=== PATIENT | male | born 1945 | race Caucasian/White ===

== ENCOUNTER → 2016-05-31 | Outpatient (CLI) | payer BC ==
[~2016-05-31] MED LIST: AMLO-114 PO; ASCO1CAP3 PO; ASPCH81X PO; EZET10TA47 PO; OMEG12006 PO; REDCAP2 PO; TADA20TA PO
[2016-05-31 11:27] LABS: ALT/SGPT 29 U/L (12-78); BLOOD UREA NITROGEN 21 mg/dl (7-18); BUN/CREATININE RATIO 15.9 (10-20); CALCIUM 9.5 mg/dl (8.5-10.1); CARBON DIOXIDE 30 mmol/L (21-32); CHLORIDE 106 mmol/L (98-107); GLUCOSE 94 mg/dl (70-99); POTASSIUM 4.4 mmol/L (3.5-5.1); SODIUM 141 mmol/L (136-145)
[2016-05-31 11:30] LABS: ALKALINE PHOSPHATASE 92 U/L (45-117); AST/SGOT 18 U/L (15-37)
== END | disposition home or self-care (01) ==
LOC: C.LABBC 08:02
PROVIDERS: ATTEND Family Medicine
DX: G50.0 Trigeminal neuralgia (principal); N18.3 Chronic kidney disease, stage 3 (moderate)

== ENCOUNTER → 2016-09-02 | Outpatient (CLI) | payer BC ==
[~2016-09-02] MED LIST changes: +LSN20 PO
[2016-09-02 12:39] LABS: URINE APPEARANCE CLEAR (CLEAR); URINE BILIRUBIN NEG (NEG); URINE COLOR YELLOW; URINE NITRITE NEG (NEG); URINE PH 5.5 (4.5-7.5); UROBILINOGEN NEG (NEG)
[2016-09-02 12:40] LABS: MANUAL MICROSCOPIC REQUIRED? NO; REVIEW REQ? NO
[2016-09-02 13:20] LABS: BLOOD UREA NITROGEN 21 mg/dl (7-18); BUN/CREATININE RATIO 17.4 (10-20); CARBON DIOXIDE 30 mmol/L (21-32); CHLORIDE 107 mmol/L (98-107); GLUCOSE 92 mg/dl (70-99); PHOSPHORUS 2.5 mg/dl (2.5-4.9); POTASSIUM 4.2 mmol/L (3.5-5.1); SODIUM 141 mmol/L (136-145)
[2016-09-02 13:26] LABS: CALCIUM 9.2 mg/dl (8.5-10.1)
== END | disposition home or self-care (01) ==
LOC: C.LABPBG 08:55
PROVIDERS: ATTEND Internal Medicine Nephrology
DX: N18.3 Chronic kidney disease, stage 3 (moderate) (principal)

== ENCOUNTER 2016-12-17 10:08 | Inpatient (IN) | payer BC, OTHER ==
[~2016-12-17] VITALS: Ht 175.3 cm; Wt 74.2 kg
[~2016-12-17 10:08] MED LIST changes: -LSN20 PO
[2016-12-17] MEDS ORDERED: LSN20 PO (10:27)
--- NOTE | 2016-12-17 11:10 | DIAGNOSTIC IMAGING REPORT ---
CT SCAN OF THE BRAIN WITHOUT IV CONTRAST CLINICAL HISTORY: Right upper extremity weakness/numbness. COMPARISON STUDY: No priors. TECHNIQUE: Unenhanced axial CT scan of the brain is performed from the vertex to the skull base. CT DOSE: 537.48 mGy.cm FINDINGS: Brain parenchyma: There are age-related involutional changes noting mild subcortical and periventricular microangiopathic change. There is no hemorrhage, mass effect, or evidence of acute territorial ischemia by CT criteria. Paez-white matter is preserved. No extra-axial fluid collection is seen. Ventricles, sulci, cisterns: Prominent secondary to involutional change. Intracranial vasculature: There is atherosclerotic calcification of the cavernous carotid arteries. Calvarium: Unremarkable. Sinuses and mastoids: The visualized paranasal sinuses are clear. Findings suggest previous left mastoid surgery. There is a small left mastoid effusion. The right mastoid air cells are well pneumatized. Orbits: The bony orbits are grossly intact. There are bilateral ocular lens implants. IMPRESSION: There is no hemorrhage, mass effect, or evidence of acute territorial ischemia by CT criteria. Electronically signed by: Billy Mckeon M.D. 12/17/2016 11:08 AM Dictated Date/Time: 12/17/2016 11:05 AM
[2016-12-17 11:20] LABS: BASO % 0.3 %; BASO ABS # 0.01 K/uL (0-0.2); COMPLETE YES; HEMATOCRIT 42.6 % (42-52); IG% 0.3 %; LYMPH % 41.1 %; LYMPH ABS # 1.25 K/uL (1.2-3.4); MEAN CORPUSCULAR HEMOGLOBIN 31.2 pg (25-34); MEAN CORPUSCULAR HGB CONC 34.3 g/dl (32-36); MEAN PLATELET VOLUME 10.3 fL (7.4-10.4); MONO % 10.5 %; NEUT % 45.8 %; PLATELET COUNT 130 K/uL (130-400); RED BLOOD COUNT 4.68 M/uL (4.7-6.1); WHITE BLOOD COUNT 3.04 K/uL (4.8-10.8)
[2016-12-17 11:29] LABS: BUN/CREATININE RATIO 18.9 (10-20); CALCIUM 9.2 mg/dl (8.5-10.1); CREATININE 1.5 mg/dl (0.60-1.40); MAGNESIUM 2.1 mg/dl (1.8-2.4); POTASSIUM 4.2 mmol/L (3.5-5.1); PROTHROMBIN TIME (PATIENT) 10.7 SECONDS (9.0-12.0)
[2016-12-17 11:45] LABS: THYROID STIMULATING HORMONE 1.13 uIu/ml (0.300-4.500)
[2016-12-17] MEDS ORDERED: ASPIRIN 324 MG CHEW PO STA (11:47)
--- NOTE | 2016-12-17 11:52 | DIAGNOSTIC IMAGING REPORT ---
SINGLE VIEW CHEST CLINICAL HISTORY: Tingling and numbness. Strokelike symptoms. FINDINGS: 2 AP, portable, upright chest radiographs are obtained. No prior studies are available for comparison at the time of dictation. The examination is degraded by portable technique and patient rotation. The cardiomediastinal silhouette is unremarkable. There is atherosclerotic calcification of the thoracic aorta. The lungs and pleural spaces are clear. No pneumothorax is seen. The skeletal structures are osteopenic. Arthritic change is seen in the shoulders and thoracic spine. IMPRESSION: No acute cardiopulmonary abnormality. Electronically signed by: Billy Mckeon M.D. 12/17/2016 11:51 AM Dictated Date/Time: 12/17/2016 11:50 AM
[2016-12-17 12:21] LABS: LYME DISEASE AB IGG NEG (NEG); LYME DISEASE AB IGM NEG (NEG)
[2016-12-17 12:30] VITALS: O2SAT 96; Ht 175.3 cm; Wt 74.2 kg
--- NOTE | 2016-12-17 12:46 | EMERGENCY ROOM VISIT NOTE ---
History Report prepared by Ngoc: Edith Vega Under the Supervision of: Dr. Boni Brewer M.D. First contact with patient: 10:24 Chief Complaint: NEURO SYMPTOMS Stated Complaint: FRIDAY PM, NUMBNESS IN HAND/ARM, WEAK, FELL History of Present Illness The patient is a 71 year old white male with a past medical history of hypertension, hyperlipidemia, and stage 3 kidney disease who presents to the ED with a cc of neurological symptoms beginning 2 days ago. The patient has had intermittent burning pain in his right arm for the past 3-4 months. He states that it waxes and wanes and feels numb and tingly like he "laid on it and it fell asleep." He states that he just wakes up with this burning pain. He has seen his PCP for this in the past and was told that he might have pinched something in his neck. Two days ago the patient felt weak and short of breath. He walked to the bathroom and states that he "just ran out of gas." He fell down on his buttocks because he was feeling so weak. The patient denies LOC and states that he just felt weak. His called his PCP today with his symptoms and was advised to bring the patient to the ED for further evaluation. The patient denies any current numbness, tingling or weakness. He takes aspirin and denies any other blood thinners. He has had multiple ticks in the past with bullseye rashes and states that he has only taken doxycycline for a couple of days at a time. Source of History: patient Onset: 2 days ago Position: other (global) Quality: burning Timing: intermittent Associated Symptoms: + weakness, + numbness (right arm), No LOC Note: Pt has right arm pain and tingling. Review of Systems See HPI for pertinent positives and negatives. A total of ten systems were reviewed and were otherwise negative. Past Medical & Surgical Medical Problems: (1) Hyperlipidemia (2) Hypertension (3) Stage 3 chronic kidney disease Family History Cancer Social History Smoking Status: Never Smoker Smokeless Tobacco Use: No Alcohol Use: occasionally Marital Status: Housing Status: lives with significant other Occupation Status: retired Current/Historical Medications Scheduled Ascorbic Acid (Vitamin C), 1 CAP PO QAM Aspirin (Aspirin Chewable), 81 MG PO QAM Ezetimibe (Zetia), 10 MG PO QAM Lisinopril (Lisinopril), 20 MG PO DAILY [place]-3 Fatty Acids ([place] 3), 1 CAP PO QAM Scheduled PRN Tadalafil (Cialis), 20 MG PO DAILY PRN for PRN Allergies Coded Allergies: Statins (Unverified Allergy, Intermediate, MUSCLE SPASMS, 12/17/16) Physical Exam Vital Signs Date Time Temp Pulse Resp B/P (MAP) Pulse Ox O2 Delivery O2 Flow Rate FiO2 12/17/16 14:19 69 16 152/98 97 Room Air 12/17/16 13:43 66 15 96 12/17/16 13:30 154/82 12/17/16 13:13 63 17 97 12/17/16 13:00 140/82 12/17/16 12:43 69 16 97 12/17/16 12:38 67 17 96 12/17/16 12:30 96 Room Air 12/17/16 12:30 144/69 12/17/16 12:20 135/79 12/17/16 12:08 68 15 97 12/17/16 12:01 135/79 12/17/16 11:38 66 20 96 12/17/16 11:31 129/82 12/17/16 11:11 72 20 141/79 97 Room Air 12/17/16 11:10 98 Room Air 12/17/16 11:10 141/79 12/17/16 11:09 87/77 12/17/16 10:57 140/90 12/17/16 10:43 81 12/17/16 10:13 36.7 82 16 164/55 98 Room Air Physical Exam GENERAL: Awake, alert, well-appearing, NAD HENT: Normocephalic, atraumatic. EYES: Normal conjunctiva. Sclera non-icteric. NECK: Supple. No nuchal rigidity. FROM. RESPIRATORY: CTAB, no rhonchi, wheezing, crackles CARDIAC: RRR, systolic ejection murmur. ABDOMEN: Soft, NTND, BS+ MSK: No chest wall TTP, no LE edema NEURO: GCS 15, CN 2-12 intact, moves all 4s on command. No drift, no dysmetria, good finger to nose. 5/5 upper and lower extremity strength. No sensory deficits. SKIN: No rash or jaundice noted. Medical Decision & Procedures ER Provider Diagnostic Interpretation: Radiology results as stated below per my review and radiologist interpretation: CT SCAN OF THE BRAIN WITHOUT IV CONTRAST CLINICAL HISTORY: Right upper extremity weakness/numbness. COMPARISON STUDY: No priors. TECHNIQUE: Unenhanced axial CT scan of the brain is performed from the vertex to the skull base. CT DOSE: 537.48 mGy.cm FINDINGS: Brain parenchyma: There are age-related involutional changes noting mild subcortical and periventricular microangiopathic change. There is no hemorrhage, mass effect, or evidence of acute territorial ischemia by CT criteria. Paez-white matter is preserved. No extra-axial fluid collection is seen. Ventricles, sulci, cisterns: Prominent secondary to involutional change. Intracranial vasculature: There is atherosclerotic calcification of the cavernous carotid arteries. Calvarium: Unremarkable. Sinuses and mastoids: The visualized paranasal sinuses are clear. Findings suggest previous left mastoid surgery. There is a small left mastoid effusion. The right mastoid air cells are well pneumatized. Orbits: The bony orbits are grossly intact. There are bilateral ocular lens implants. IMPRESSION: There is no hemorrhage, mass effect, or evidence of acute territorial ischemia by CT criteria. Electronically signed by: Billy Mckeon M.D. 12/17/2016 11:08 AM Dictated Date/Time: 12/17/2016 11:05 AM SINGLE VIEW CHEST CLINICAL HISTORY: Tingling and numbness. Strokelike symptoms. FINDINGS: 2 AP, portable, upright chest radiographs are obtained. No prior studies are available for comparison at the time of dictation. The examination is degraded by portable technique and patient rotation. The cardiomediastinal silhouette is unremarkable. There is atherosclerotic calcification of the thoracic aorta. The lungs and pleural spaces are clear. No pneumothorax is seen. The skeletal structures are osteopenic. Arthritic change is seen in the shoulders and thoracic spine. IMPRESSION: No acute cardiopulmonary abnormality. Electronically signed by: Billy Mckeon M.D. 12/17/2016 11:51 AM Dictated Date/Time: 12/17/2016 11:50 AM Laboratory Results 12/17/16 10:50 Red Blood Count 4.68, Mean Corpuscular Volume 91.0, Mean Corpuscular Hemoglobin 31.2, Mean Corpuscular Hemoglobin Concent 34.3, Mean Platelet Volume 10.3, Neutrophils (%) (Auto) 45.8, Lymphocytes (%) (Auto) 41.1, Monocytes (%) (Auto) 10.5, Eosinophils (%) (Auto) 2.0, Basophils (%) (Auto) 0.3, Neutrophils # (Auto ) 1.39, Lymphocytes # (Auto) 1.25, Monocytes # (Auto) 0.32, Eosinophils # (Auto ) 0.06, Basophils # (Auto) 0.01 12/17/16 10:50 Test 12/17/16 10:50 12/17/16 13:55 White Blood Count 3.04 K/uL (4.8-10.8) Red Blood Count 4.68 M/uL (4.7-6.1) Hemoglobin 14.6 g/dL (14.0-18.0) Hematocrit 42.6 % (42-52) Mean Corpuscular Volume 91.0 fL (80-100) Mean Corpuscular Hemoglobin 31.2 pg (25-34) Mean Corpuscular Hemoglobin Concent 34.3 g/dl (32-36) Platelet Count 130 K/uL (130-400) Mean Platelet Volume 10.3 fL (7.4-10.4) Neutrophils (%) (Auto) 45.8 % Lymphocytes (%) (Auto) 41.1 % Monocytes (%) (Auto) 10.5 % Eosinophils (%) (Auto) 2.0 % Basophils (%) (Auto) 0.3 % Neutrophils # (Auto) 1.39 K/uL (1.4-6.5) Lymphocytes # (Auto) 1.25 K/uL (1.2-3.4) Monocytes # (Auto) 0.32 K/uL (0.11-0.59) Eosinophils # (Auto) 0.06 K/uL (0-0.5) Basophils # (Auto) 0.01 K/uL (0-0.2) RDW Standard Deviation 43.0 fL (36.4-46.3) RDW Coefficient of Variation 13.0 % (11.5-14.5) Immature Granulocyte % (Auto) 0.3 % Immature Granulocyte # (Auto) 0.01 K/uL (0.00-0.02) Prothrombin Time 10.7 SECONDS (9.0-12.0) Prothromb Time International Ratio 1.0 (0.9-1.1) Activated Partial Thromboplast Time 26.3 SECONDS (21.0-31.0) Partial Thromboplastin Ratio 1.0 Anion Gap 6.0 mmol/L (3-11) Est Creatinine Clear Calc Drug Dose 45.2 ml/min Estimated GFR () 53.5 Estimated GFR (Non- 46.2 BUN/Creatinine Ratio 18.9 (10-20) Calcium Level 9.2 mg/dl (8.5-10.1) Magnesium Level 2.1 mg/dl (1.8-2.4) Total Bilirubin 0.4 mg/dl (0.2-1) Direct Bilirubin 0.1 mg/dl (0-0.2) Aspartate Amino Transf (AST/SGOT) 35 U/L (15-37) Alanine Aminotransferase (ALT/SGPT) 28 U/L (12-78) Alkaline Phosphatase 84 U/L (45-117) Troponin I 2.110 ng/ml (0-0.045) Total Protein 6.7 gm/dl (6.4-8.2) Albumin 3.5 gm/dl (3.4-5.0) Lipase 326 U/L (73-393) Thyroid Stimulating Hormone (TSH) 1.130 uIu/ml (0.300-4.500) Lyme Disease IgG Antibody NEG (NEG) Lyme Disease IgM Antibody NEG (NEG) Laboratory results reviewed by me Medications Administered Medications (Trade) Dose Ordered Sig/Reny Route Start Time Stop Time Status Last Admin Dose Admin Aspirin (Aspirin Chew) 324 mg NOW STAT PO 12/17/16 11:47 12/17/16 11:48 DC 12/17/16 12:34 324 MG ECG Indication: weakness Rate (beats per minute): 76 Rhythm: normal sinus Findings: no ectopy, other (normal intervals, no ST changes) ED Course 1024: The patient was evaluated in room C6. A complete history and physical exam was performed. 1147: Aspirin 324 mg PO 1204: I spoke with Dr. Ureña. We discussed the patients case. The patient will be evaluated by the [facility] for further management. 1208: I reassessed the patient. He is feeling better and resting comfortably. I discussed the results and treatment plan with the patient. I answered all pertaining questions that he had. He expressed understanding and verbalized agreement. 1345: Influenza Virus Vaccine 0.5 ml IM Medical Decision The patient is a 71 year old white male with a past medical history of hypertension, hyperlipidemia, and stage 3 kidney disease who presents to the ED with a cc of neurological symptoms beginning 2 days ago. Differential diagnosis: Etiologies such as metabolic, infection, hypo/hyperglycemia, electrolyte abnormalities, cardiac sources, intracerebral event, toxicologic, neurologic, as well as others were entertained. Patient was seen and evaluated the bedside. Patient has had some somewhat chronic symptoms seem every 3-4 months he does develop burning numbness and tingling in his hand. He states this was recently put on Friday and did have acute episode of lower extremity weakness with a subsequent fall. Patient denies any LOC and did not strike his head. Patient does not take any blood thinning medications. Patient's neurologic exam is fairly unremarkable. Patient's EKG normal sinus with no acute ischemic changes. Patient did have a positive troponin. Upon further history patient did state that he had had a target lesion and had only taken a short course of antibiotics. A Lyme's test was also pending at this time. I spoke with the hospitalist who agreed that the patient would benefit from further treatment evaluation including an echocardiogram. Patient currently denies any chest pain or shortness of breath. Patient was given a full dose aspirin. Medication Reconcilliation Current Medication List: was personally reviewed by me Blood Pressure Screening Patient's blood pressure: Normal blood pressure Consults Time Called: 1201 Consulting Physician: Dr. Ureña Returned Call: [address] Ureña. We discussed the patients case. The patient will be evaluated by the [facility] for further management. Impression Primary Impression: Elevated troponin Additional Impression: RUE numbness Scribe Attestation The scribe's documentation has been prepared under my direction and personally reviewed by me in its entirety. I confirm that the note above accurately reflects all work, treatment, procedures, and medical decision making performed by me. Departure Information Dispostion Being Evaluated By Hospitalist Referrals Emy Irving DO (PCP) Patient Instructions My [facility] Problem Qualifiers
[2016-12-17] MEDS ORDERED: NITROGLYCERIN 0.4 MG SL PER TAB CHARGE SL PRN (14:00)
[2016-12-17] MEDS ORDERED: ONDANSETRON INJ 2 MG/ML 2 ML VIAL IV PRN (14:00)
[2016-12-17] MEDS ORDERED: ACETAMINOPHEN 325 MG TAB PO PRN (14:00)
[2016-12-17 14:32] VITALS: O2SAT 97
[2016-12-17 14:53] LABS: CHOLESTEROL/HDL RATIO 3.1
[2016-12-17] MEDS ORDERED: INFLUENZA ADMINISTRATION CHARGE ONE (15:00)
[2016-12-17] MEDS ORDERED: INFLUENZA VACCINE HIGH DOSE 65+ 0.5 ML SYR IM. ONE (15:00)
--- NOTE | 2016-12-17 15:55 | DIAGNOSTIC IMAGING REPORT ---
BRAIN COMBO CLINICAL HISTORY: 71 years-old Male presenting with fell on Friday night, now complaining of tingling in the right hand with numbness and weakness. TECHNIQUE: Multisequence, multiplanar MR imaging of the brain was performed before and after the administration of intravenous contrast. IV contrast: 7.4 mL of Gadavist. COMPARISON: CT head performed the same day and MR brain from 2015. FINDINGS: Ventricles and sulci normal in size. T2/FLAIR hyperintensity in the periventricular and subcortical white matter primarily in the parieto-occipital region bilaterally, unchanged from prior exam. Two foci of encephalomalacia in the right parietal and right occipital lobes, unchanged from prior likely indicating prior infarcts. No mass effect or midline shift. No restricted diffusion to suggest acute ischemia. No hemorrhage. No extra-axial fluid collection. T2 skull base flow voids preserved. Bone marrow signal intensity within the calvarium within normal limits. Polypoid mucosal thickening in the left maxillary sinus. Bilateral pokagon lenses of the globes are absent. IMPRESSION: 1. No acute intracranial pathology. No abnormal enhancement. 2. 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 3. Stable appearance of the posterior predominant chronic small vessel ischemic change. Electronically signed by: Paresh Burkett M.D. 12/17/2016 3:53 PM Dictated Date/Time: 12/17/2016 3:46 PM
--- NOTE | 2016-12-17 15:58 | DIAGNOSTIC IMAGING REPORT ---
Brain MRA HISTORY: Right hand numbness and weakness. Assess for stroke. TECHNIQUE: 3-D [id number] MRA of the brain was performed without contrast. COMPARISON STUDY: Head CT 12/17/2016. Brain MRA 10/25/2014. FINDINGS: Mild multifocal narrowing within the basilar artery and right M1 segment. This has slightly progressed in the interval. The bilateral intracranial internal carotid arteries, bilateral ACAs, bilateral spark tester are widely patent. Severely hypoplastic distal right vertebral artery which is not well visualized. This remains unchanged. Patent dominant left vertebral artery. No significant stenosis within the left MCA. IMPRESSION: 1. 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 2. Severely hypoplastic distal right vertebral artery, unchanged. Electronically signed by: Rafa Jeronimo M.D. 12/17/2016 3:57 PM Dictated Date/Time: 12/17/2016 3:48 PM
[2016-12-17 16:07] VITALS: BP 160/90; PULSE 79; TEMP 36.4; O2SAT 97
--- NOTE | 2016-12-17 16:22 | DIAGNOSTIC IMAGING REPORT ---
NECK MRA HISTORY: Recent fall. Right hand numbness and weakness. TECHNIQUE: [id number] and gadolinium-enhanced MRA of the neck was performed both before and after the intravenous administration of contrast. All measurements were calculated based on NASCET criteria. COMPARISON STUDY: Carotid Doppler 12/14/2014. FINDINGS: The aortic arch and proximal great vessels are widely patent. There is no significant stenosis, occlusion, or dissection identified within the bilateral common carotid, internal carotid, or left vertebral arteries. Severe low hypoplastic right vertebral artery. The distal intracranial portion of the right vertebral artery is not well visualized. IMPRESSION: No significant stenosis, occlusion, or dissection identified within the carotid or left vertebral arteries. Severely hypoplastic right vertebral artery with the distal portion not well visualized. Electronically signed by: Rafa Jeronimo M.D. 12/17/2016 4:21 PM Dictated Date/Time: 12/17/2016 4:02 PM
--- NOTE | 2016-12-17 16:26 | Cardiology Consultation ---
Cardiology Consultation Date of Consultation: Dec 17, 2016. Requesting Physician: Dr. Ureña Reason for Consultation: Elevated troponin Pt evaluation today including: conversation w/ patient, conversation w/ family , physical exam, lab review, review of studies, review of inpatient medication list History of Present Illness This is a 71-year-old male who has a history of hypertension, hypercholesterolemia, neuropathy and chronic kidney disease and no known heart disease. He presented to the emergency room today with an episode of weakness and shortness of breath. He does have a history of burning right arm discomfort for 3 or 4 months and has been diagnosed with a neuropathy. This is R arm only, usually at night in bed, not aware of it during the day when he is active. He does not think there is no exertional component to it. He does not have chest discomfort or palpitations and has no left arm symptoms. He does recall a history of a heart murmur. 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 He awoke yesterday morning (the next day) at 3: 39AM to go to the bathroom, he felt odd and SOB, got up out of bed and felt very weak and sank to the floor without LOC. He had no chest pain or palpitations. He went back to bed and felt fine the next morning and thereafter. He reports no exertional symptoms or decrease in exercise capacity lately. In the emergency room his electrocardiogram was unremarkable and he was noted to have a [id number] troponin elevation to 2.1. Past Medical/Surgical History (1) Hypertension (2) Hyperlipidemia (3) Stage 3 chronic kidney disease Family History Cancer Social History Smoking Status: Never Smoker History of Alcohol Use: Yes (OCCASSIONALLY) Review of Systems Constitutional: No fever, No weight loss, No weakness Respiratory: + see HPI, + shortness of breath, No cough, No wheezing, No dyspnea on exertion Cardiac: + see HPI, No chest pain, No orthopnea, No PND, No edema, No palpitations Abdomen: No pain, No nausea, No vomiting, No diarrhea, No GI bleeding Male : No urinary frequency, No nocturia more than once/night, No slowing stream, No sexual dysfunction Neurologic: + problem reported (R arm discomfort), No paralysis, No weakness, No numbness/tingling, No balance problems Heme: No abnormal bleeding/bruising, No clotting problems Endo: No fatigue Skin: No problem reported All Other Systems: Reviewed and Negative Allergies Coded Allergies: Statins (Unverified Allergy, Intermediate, MUSCLE SPASMS, 12/17/16) Medications Current Inpatient Medications Medications (Trade) Dose Ordered Sig/Reny Route Start Time Stop Time Status Last Admin Dose Admin Acetaminophen (Tylenol Tab) 650 mg Q4H PRN PO 12/17/16 14:00 01/16/17 13:59 Nitroglycerin (Nitrostat Tab) 0.4 mg UD PRN SL 12/17/16 14:00 01/16/17 13:59 Aspirin (Ecotrin Tab) 81 mg QAM PO 12/18/16 09:00 01/17/17 08:59 UNV EZETIMIBE (Zetia Tab) 10 mg QAM PO 12/18/16 09:00 01/17/17 08:59 UNV Ascorbic Acid (Vitamin C Tab) 1 mg QAM PO 12/18/16 09:00 01/17/17 08:59 UNV Ondansetron HCl (Zofran Inj) 4 mg Q6H PRN IV 12/17/16 14:00 01/16/17 13:59 Physical Exam Vital Signs Past 12 Hours Date Time Temp Pulse Resp B/P (MAP) Pulse Ox O2 Delivery O2 Flow Rate FiO2 12/17/16 14:32 36.7 69 16 152/98 97 12/17/16 14:19 69 16 152/98 97 Room Air 12/17/16 13:43 66 15 96 12/17/16 13:30 154/82 12/17/16 13:13 63 17 97 12/17/16 13:00 140/82 12/17/16 12:43 69 16 97 12/17/16 12:38 67 17 96 12/17/16 12:30 96 Room Air 12/17/16 12:30 144/69 12/17/16 12:20 135/79 12/17/16 12:08 68 15 97 12/17/16 12:01 135/79 12/17/16 11:38 66 20 96 12/17/16 11:31 129/82 12/17/16 11:11 72 20 141/79 97 Room Air 12/17/16 11:10 98 Room Air 12/17/16 11:10 141/79 12/17/16 11:09 87/77 12/17/16 10:57 140/90 12/17/16 10:43 81 12/17/16 10:13 36.7 82 16 164/55 98 Room Air Constitutional: General Apperance: heathly-appearing Level of Distress: NAD Psychiatric: Mental Status: active & alert Head: normocephalic Eyes: EOM: EOMI ENMT: normal ENT inspection, hearing grossly normal Neck: supple, no masses Lungs: Respiratory effort: no dyspnea, good air movement Auscultation: breath sounds normal, no wheezing Cardiovascular: Heart Auscultation: RRR, no rubs, no gallops, II/ WSM Peripheral Pulses: Bruits: none appreciated Abdomen: Bowel Sounds: normal Inspection & Palpation: soft, no tenderness, guarding & rebound, no masses Musculoskeletal: normal strength (5/5 throughout) Extremities: no edema Neurologic: Cranial Nerves: grossly intact Sensation: grossly intact Data Laboratory Results: Last 24 Hours Test 12/17/16 10:50 White Blood Count 3.04 K/uL Red Blood Count 4.68 M/uL Hemoglobin 14.6 g/dL Hematocrit 42.6 % Mean Corpuscular Volume 91.0 fL Mean Corpuscular Hemoglobin 31.2 pg Mean Corpuscular Hemoglobin Concent 34.3 g/dl Platelet Count 130 K/uL Mean Platelet Volume 10.3 fL Neutrophils (%) (Auto) 45.8 % Lymphocytes (%) (Auto) 41.1 % Monocytes (%) (Auto) 10.5 % Eosinophils (%) (Auto) 2.0 % Basophils (%) (Auto) 0.3 % Neutrophils # (Auto) 1.39 K/uL Lymphocytes # (Auto) 1.25 K/uL Monocytes # (Auto) 0.32 K/uL Eosinophils # (Auto) 0.06 K/uL Basophils # (Auto) 0.01 K/uL RDW Standard Deviation 43.0 fL RDW Coefficient of Variation 13.0 % Immature Granulocyte % (Auto) 0.3 % Immature Granulocyte # (Auto) 0.01 K/uL Prothrombin Time 10.7 SECONDS Prothromb Time International Ratio 1.0 Activated Partial Thromboplast Time 26.3 SECONDS Partial Thromboplastin Ratio 1.0 Sodium Level 142 mmol/L Potassium Level 4.2 mmol/L Chloride Level 109 mmol/L Carbon Dioxide Level 27 mmol/L Anion Gap 6.0 mmol/L Blood Urea Nitrogen 28 mg/dl Creatinine 1.50 mg/dl Est Creatinine Clear Calc Drug Dose 45.2 ml/min Estimated GFR () 53.5 Estimated GFR (Non- 46.2 BUN/Creatinine Ratio 18.9 Random Glucose 105 mg/dl Calcium Level 9.2 mg/dl Magnesium Level 2.1 mg/dl Total Bilirubin 0.4 mg/dl Direct Bilirubin 0.1 mg/dl Aspartate Amino Transf (AST/SGOT) 35 U/L Alanine Aminotransferase (ALT/SGPT) 28 U/L Alkaline Phosphatase 84 U/L Troponin I 2.110 ng/ml Total Protein 6.7 gm/dl Albumin 3.5 gm/dl Triglycerides Level 140 mg/dl Cholesterol Level 207 mg/dl HDL Cholesterol 67 mg/dl LDL Cholesterol, Calculated 112 mg/dl VLDL Cholesterol, Calculated 28 mg/dl Cholesterol/HDL Ratio 3.1 Lipase 326 U/L Thyroid Stimulating Hormone (TSH) 1.130 uIu/ml Lyme Disease IgG Antibody NEG Lyme Disease IgM Antibody NEG Imaging: An echocardiogram is pending EKG: An electrocardiogram today demonstrates sinus rhythm at 76 bpm and is normal with no evidence of ischemia or injury. There are no prior echocardiogram for comparison. Assessment & Plan 1. Weakness, SOB: I suspect an arrhythmia, perhaps transient AF or bradycardia. He had so palpitations and the episode was evidently relatively brief but an arrhythmia might explain an elevated Troponin now. I would monitor on telemetry for now, we may want to consider longer term monitoring of do not come up with an explanation. 2. Elevated troponin: He does not seem to have significant CAD based on his lack of exertional symptoms, I would trend enzymes and see if it is consistent with an event early Friday morning. If so this could've been an arrhythmia or an ischemic event, however there is no ECG evidence of an IA, but may need a stress test. 3. R arm discomfort: Doubt this is cardiac or related to his presentation. It appears to be positional when he is laying in bed, it is not aggravated at all by work and does not come on with strenuous activities. 4. MR on exam: Echo to confirm. Does not sound severe. Thank you for allowing me to participate in his care.
[2016-12-17 18:06] LABS: URINE APPEARANCE CLEAR (CLEAR); URINE BILIRUBIN NEG (NEG); URINE COLOR YELLOW; URINE NITRITE NEG (NEG); URINE SPECIFIC GRAVITY 1.017 (1.000-1.030); UROBILINOGEN NEG (NEG)
[2016-12-17 18:09] LABS: MANUAL MICROSCOPIC REQUIRED? NO; REVIEW REQ? NO
[2016-12-17 19:28] VITALS: BP 150/75; PULSE 64; TEMP 36.5; O2SAT 97
[2016-12-17 22:23] LABS: CKMB/CK RATIO 3.6 (0-3.0)
[2016-12-18 00:15] VITALS: BP 108/65; PULSE 68; TEMP 36.7; O2SAT 96
[2016-12-18 04:23] VITALS: BP 121/70; PULSE 59; TEMP 36.5; O2SAT 97
[2016-12-18 07:07] LABS: BASO % 0.3 %; BASO ABS # 0.01 K/uL (0-0.2); COMPLETE YES; EOS % 2.5 %; HEMATOCRIT 44.8 % (42-52); IG% 0.3 %; MEAN CELL VOLUME 91.6 fL (80-100); MEAN CORPUSCULAR HEMOGLOBIN 31.1 pg (25-34); MEAN CORPUSCULAR HGB CONC 33.9 g/dl (32-36); MEAN PLATELET VOLUME 10.5 fL (7.4-10.4); MONO % 7.7 %; NEUT % 48.2 %; PLATELET COUNT 123 K/uL (130-400); RED BLOOD COUNT 4.89 M/uL (4.7-6.1); WHITE BLOOD COUNT 3.66 K/uL (4.8-10.8)
[2016-12-18 07:16] LABS: PROTHROMBIN TIME (PATIENT) 10.7 SECONDS (9.0-12.0)
[2016-12-18 07:29] LABS: ALT/SGPT 26 U/L (12-78); AST/SGOT 24 U/L (15-37); BLOOD UREA NITROGEN 27 mg/dl (7-18); BUN/CREATININE RATIO 17.8 (10-20); CALCIUM 8.6 mg/dl (8.5-10.1); CARBON DIOXIDE 26 mmol/L (21-32); CHLORIDE 110 mmol/L (98-107); GLUCOSE 93 mg/dl (70-99); MAGNESIUM 2.2 mg/dl (1.8-2.4); POTASSIUM 4.5 mmol/L (3.5-5.1); SODIUM 142 mmol/L (136-145)
[2016-12-18 07:36] LABS: ESTIMATED AVERAGE GLUCOSE 108 mg/dl; HA1C FLAG Normal (Normal)
[2016-12-18 07:37] LABS: ALKALINE PHOSPHATASE 76 U/L (45-117); CKMB/CK RATIO 3.1 (0-3.0)
[2016-12-18 07:53] VITALS: BP 149/79; PULSE 59; TEMP 36.3; O2SAT 96
[2016-12-18] MEDS ORDERED: ASCORBIC ACID 500 MG TAB PO SCH (09:00)
[2016-12-18] MEDS ORDERED: ASPIRIN 81 MG CHEW PO SCH (09:00)
[2016-12-18] MEDS ORDERED: ASPIRIN 81 MG ECTAB PO SCH (09:00)
[2016-12-18] MEDS ORDERED: EZETIMIBE 10MG TAB PO SCH (09:00)
--- NOTE | 2016-12-18 09:17 | ECHOCARDIOGRAM REPORT ---
*NOTICE TO RECEIVING LIBERTARIAN AGENCY This information is strictly Confidential and protected under [place] law. [place] law prohibits you from making any further disclosure of this information unless further disclosure is expressly permitted by the written consent of the person to whom it pertains or is authorized by law. A general authorization for the release of medical or other information is not sufficient for this purpose. Hospital accepts no responsibility if the information is made available to any other person, INCLUDING THE PATIENT. Interpretation Summary * Name: LATONYA HAHN Study Date: 12/18/2016 06:37 AM BP: 121/70 mmHg * Patient Location: [facility]\S\N281\S\2 HR: 59 * : 1945 (M/d/yyyy) Gender: Male Height: 69 in * Age: 71 yrs Ethnicity: [place] Weight: 164 lb * Ordering Physician: Lars Ureña * Referring Physician: Self, Referred * Performed By: Radha Montaño RDCS * * Reason For Study: NSTEMI * BSA: 1.9 m2 * -- Conclusions -- * There is mild concentric left ventricular hypertrophy. * Left ventricular systolic function is normal. * Grade I diastolic dysfunction, (abnormal relaxation pattern). * Probably moderate aortic stenosis. * There is mild mitral regurgitation. * Right ventricular systolic pressure is normal. * Compared to a study from 12/2014, there is no significant change Procedure Details * A complete two-dimensional transthoracic echocardiogram was performed (2D, M-mode, Doppler and color flow Doppler). Left Ventricle * The left ventricle is normal in size. * There is mild concentric left ventricular hypertrophy. * Ejection Fraction = 55-60%. * Left ventricular systolic function is normal. * Grade I diastolic dysfunction, (abnormal relaxation pattern). * There appears to be mild hypokinesis involving the anterior and lateral apex Right Ventricle * The right ventricle is normal in size and function. * The right ventricular systolic function is normal as assessed by tricuspid annular plane systolic excursion (TAPSE) (normal >1.5 cm). Atria * The left atrial size is normal. * Right atrial size is normal. Mitral Valve * The mitral valve leaflets appear thickened, but open well. * There is mild mitral regurgitation. Tricuspid Valve * The tricuspid valve is not well visualized, but is grossly normal. * There is trace tricuspid regurgitation. * Right ventricular systolic pressure is normal. Aortic Valve * The aortic valve is trileaflet. * Probably moderate aortic stenosis. * No aortic regurgitation is present. Great Vessels * The aortic root is normal size. Pericardium/Pleural * There is no pericardial effusion. MMode 2D Measurements and Calculations IVSd 1.1 cm LVIDd 4.0 cm LVIDs 2.7 cm LVPWd 1.4 cm IVS/LVPW 0.77 FS 30.7 % EDV(Teich) 68.2 ml ESV(Teich) 28.1 ml EF(Teich) 58.8 % EDV(cubed) 61.9 ml ESV(cubed) 20.6 ml EF(cubed) 66.7 % LV mass(C)d 178.2 grams LV mass(C)dI 93.9 grams/m\S\2 CO(Teich) 2.2 l/min CI(Teich) 1.1 l/min/m\S\2 SV(Teich) 40.1 ml SI(Teich) 21.1 ml/m\S\2 CO(cubed) 2.2 l/min CI(cubed) 1.2 l/min/m\S\2 SV(cubed) 41.3 ml SI(cubed) 21.7 ml/m\S\2 Ao root diam 3.5 cm Ao root area 9.8 cm\S\2 ACS 1.2 cm LA dimension 2.8 cm asc Aorta Diam 3.8 cm LA/Ao 0.79 LVOT diam 2.0 cm LVOT area 3.2 cm\S\2 LVAd ap4 23.7 cm\S\2 LVLd ap4 6.7 cm EDV(MOD-sp4) 67.5 ml LVAs ap4 13.7 cm\S\2 LVLs ap4 5.7 cm ESV(MOD-sp4) 29.5 ml EF(MOD-sp4) 56.3 % LVAd ap2 20.0 cm\S\2 LVLd ap2 7.1 cm EDV(MOD-sp2) 49.3 ml LVAs ap2 10.7 cm\S\2 LVLs ap2 6.1 cm ESV(MOD-sp2) 18.2 ml EF(MOD-sp2) 63.1 % CO(MOD-sp4) 2.1 l/min CI(MOD-sp4) 1.1 l/min/m\S\2 SV(MOD-sp4) 38.0 ml SI(MOD-sp4) 20.0 ml/m\S\2 CO(MOD-sp2) 1.7 l/min CI(MOD-sp2) 0.88 l/min/m\S\2 SV(MOD-sp2) 31.1 ml SI(MOD-sp2) 16.4 ml/m\S\2 Doppler Measurements and Calculations MV E max jocelyn 60.6 cm/sec MV A max jocelyn 68.9 cm/sec MV E/A 0.88 MV dec time 0.26 sec Ao V2 max 194.1 cm/sec Ao max PG 15.1 mmHg Ao max PG (full) 13.3 mmHg Ao V2 mean 139.5 cm/sec Ao mean PG 8.7 mmHg Ao V2 VTI 41.3 cm ADORE(V,A) 1.1 cm\S\2 ADORE(V,D) 1.1 cm\S\2 LV V1 max PG 1.8 mmHg LV V1 max 66.9 cm/sec SV(Ao) 406.1 ml SI(Ao) 213.9 ml/m\S\2 PA V2 max 83.4 cm/sec PA max PG 2.8 mmHg PA acc slope 367.4 cm/sec\S\2 PA acc time 0.14 sec PI end-d jocelyn 122.2 cm/sec TR max jocelyn 200.9 cm/sec PA pr(Accel) 17.2 mmHg
--- NOTE | 2016-12-18 09:23 | History and Physical ---
History & Physical Date & Time of Service: Dec 18, 2016 at 09:12. The patient was seen and examined on 12/17/2016 Chief Complaint: Elevated Troponin, Rue Numbness Primary Care Physician: Emy Irving DO History of Present Illness Source: patient The patient is a 71-year-old male with a past medical history of hypertension, hyperlipidemia, chronic kidney disease stage III presents to the emergency department with report of right upper extremity burning and numbness that began about 3 months ago, but worsened over the past 2 days with increased physical activity. After doing considerable physical activity outside, the patient became very physically weak and short of breath. He fell down on his buttocks in the bathroom, and had difficulty getting himself up. When his called his PCP today, he was advised to come to emergency department for assessment. He does take aspirin daily. He's had multiple tick bites in the past with bull' s-eye rashes for which she has never been on completed treatment. Past Medical/Surgical History Medical Problems: (1) Hyperlipidemia Status: Chronic (2) Hypertension Status: Chronic (3) Stage 3 chronic kidney disease Status: Chronic Family History Cancer Social History Smoking Status: Never Smoker Smokeless Tobacco Use: No Alcohol Use: none Drug Use: none Marital Status: Housing status: lives with family Occupational Status: retired Immunizations History of Influenza Vaccine: Unknown History of Tetanus Vaccine?: Unknown History of Pneumococcal: Unknown History of Hepatitis B Vaccine: Unknown Multi-Drug Resistant Organisms History of MDRO: No Allergies Coded Allergies: Statins (Unverified Allergy, Intermediate, MUSCLE SPASMS, 12/17/16) Home Medications Scheduled Ascorbic Acid (Vitamin C), 1 CAP PO QAM Aspirin (Aspirin Chewable), 81 MG PO QAM Ezetimibe (Zetia), 10 MG PO QAM Lisinopril (Lisinopril), 20 MG PO DAILY Marne-3 Fatty Acids (Marne 3), 1 CAP PO QAM Scheduled PRN Tadalafil (Cialis), 20 MG PO DAILY PRN for PRN Review of Systems The patient denies chest pain, palpitations, cough, lower extremity swelling, vision change, hearing change, sore throat, fevers, chills, sweats, weight change, nausea, vomiting, diarrhea or constipation, abdominal pain, pelvic pain, blood in urine or stool, dysuria, urinary frequency or urgency, headache, memory loss, rash, abnormal bruising or bleeding, imbalance, or night sweats. The review of systems is otherwise negative other than for that already noted above, and at least 10 systems have been reviewed. Physical Exam Vital Signs Date Time Temp Pulse Resp B/P (MAP) Pulse Ox O2 Delivery O2 Flow Rate FiO2 12/18/16 07:53 36.3 59 16 149/79 (102) 96 Room Air 12/18/16 04:23 36.5 59 18 121/70 (87) 97 Room Air 12/18/16 04:00 Room Air 12/18/16 00:15 36.7 68 20 108/65 (79) 96 Room Air 12/18/16 00:00 Room Air 12/17/16 20:00 Room Air 12/17/16 19:28 36.5 64 16 150/75 (100) 97 Room Air 12/17/16 16:07 36.4 79 18 160/90 (113) 97 Room Air 12/17/16 16:00 Room Air 12/17/16 14:32 36.7 69 16 152/98 97 12/17/16 14:19 69 16 152/98 97 Room Air 12/17/16 13:43 66 15 96 12/17/16 13:30 154/82 12/17/16 13:13 63 17 97 12/17/16 13:00 140/82 12/17/16 12:43 69 16 97 12/17/16 12:38 67 17 96 12/17/16 12:30 96 Room Air 12/17/16 12:30 144/69 12/17/16 12:20 135/79 12/17/16 12:08 68 15 97 12/17/16 12:01 135/79 12/17/16 11:38 66 20 96 12/17/16 11:31 129/82 12/17/16 11:11 72 20 141/79 97 Room Air 12/17/16 11:10 98 Room Air 12/17/16 11:10 141/79 12/17/16 11:09 87/77 12/17/16 10:57 140/90 12/17/16 10:43 81 12/17/16 10:13 36.7 82 16 164/55 98 Room Air The patient is awake, well-developed and adequately nourished, alert and oriented 3, normocephalic and atraumatic, lying in bed and in no acute distress. HEENT--PERRL, EOMI, mucous membranes and oropharynx dry. Neck--supple, no JVD or bruits, thyroid normal, trachea midline, no adenopathy. Heart--normal S1 and S2, no extra beats, no murmurs, rubs or gallops. Lungs--clear bilaterally with good air movement, no respiratory distress, no accessory muscle use. Abdomen--normal bowel sounds and soft, nontender and nondistended, no hernias or masses, no organomegaly. Extremities--no cyanosis, clubbing or edema. There are good distal pulses b/l. Dermatologic--normal skin turgor, normal color, warm and dry, no abnormal lymph nodes, no rash. Neurologic--cranial nerves II through XII grossly intact, motor and sensory examination normal. Rheumatologic--normal range of motion, nontender, muscles and joints. Psychiatric--normal affect. Diagnostics Laboratory Results Results Past 24 Hours Test 12/17/16 10:50 12/17/16 17:45 12/17/16 21:43 12/18/16 06:16 Range/Units White Blood Count 3.04 4.8-10.8 K/uL Red Blood Count 4.68 4.7-6.1 M/uL Hemoglobin 14.6 14.0-18.0 g/dL Hematocrit 42.6 42-52 % Mean Corpuscular Volume 91.0 80-100 fL Mean Corpuscular Hemoglobin 31.2 25-34 pg Mean Corpuscular Hemoglobin Concent 34.3 32-36 g/dl Platelet Count 130 130-400 K/uL Mean Platelet Volume 10.3 7.4-10.4 fL Neutrophils (%) (Auto) 45.8 % Lymphocytes (%) (Auto) 41.1 % Monocytes (%) (Auto) 10.5 % Eosinophils (%) (Auto) 2.0 % Basophils (%) (Auto) 0.3 % Neutrophils # (Auto) 1.39 1.4-6.5 K/uL Lymphocytes # (Auto) 1.25 1.2-3.4 K/uL Monocytes # (Auto) 0.32 0.11-0.59 K/uL Eosinophils # (Auto) 0.06 0-0.5 K/uL Basophils # (Auto) 0.01 0-0.2 K/uL RDW Standard Deviation 43.0 36.4-46.3 fL RDW Coefficient of Variation 13.0 11.5-14.5 % Immature Granulocyte % (Auto) 0.3 % Immature Granulocyte # (Auto) 0.01 0.00-0.02 K/uL Prothrombin Time 10.7 9.0-12.0 SECONDS Prothromb Time International Ratio 1.0 0.9-1.1 Activated Partial Thromboplast Time 26.3 21.0-31.0 SECONDS Partial Thromboplastin Ratio 1.0 Sodium Level 142 136-145 mmol/L Potassium Level 4.2 3.5-5.1 mmol/L Chloride Level 109 98-107 mmol/L Carbon Dioxide Level 27 21-32 mmol/L Anion Gap 6.0 3-11 mmol/L Blood Urea Nitrogen 28 7-18 mg/dl Creatinine 1.50 0.60-1.40 mg/dl Est Creatinine Clear Calc Drug Dose 45.2 ml/min Estimated GFR () 53.5 Estimated GFR (Non- 46.2 BUN/Creatinine Ratio 18.9 10-20 Random Glucose 105 70-99 mg/dl Estimated Average Glucose 108 mg/dl Hemoglobin A1c 5.4 4.5-5.6 % Calcium Level 9.2 8.5-10.1 mg/dl Magnesium Level 2.1 1.8-2.4 mg/dl Total Bilirubin 0.4 0.2-1 mg/dl Direct Bilirubin 0.1 0-0.2 mg/dl Aspartate Amino Transf (AST/SGOT) 35 15-37 U/L Alanine Aminotransferase (ALT/SGPT) 28 12-78 U/L Alkaline Phosphatase 84 45-117 U/L Troponin I 2.110 2.030 0-0.045 ng/ml Total Protein 6.7 6.4-8.2 gm/dl Albumin 3.5 3.4-5.0 gm/dl Triglycerides Level 140 0-150 mg/dl Cholesterol Level 207 0-200 mg/dl HDL Cholesterol 67 mg/dl LDL Cholesterol, Calculated 112 mg/dl VLDL Cholesterol, Calculated 28 mg/dl Cholesterol/HDL Ratio 3.1 Lipase 326 73-393 U/L Thyroid Stimulating Hormone (TSH) 1.130 0.300-4.500 uIu/ml Lyme Disease IgG Antibody NEG NEG Lyme Disease IgM Antibody NEG NEG Urine Color YELLOW Urine Appearance CLEAR CLEAR Urine pH 5.0 4.5-7.5 Urine Specific [place] 1.017 1.000-1.030 Urine Protein NEG NEG Urine Glucose (UA) NEG NEG Urine Ketones NEG NEG Urine Occult Blood NEG NEG Urine Nitrite NEG NEG Urine Bilirubin NEG NEG Urine Urobilinogen NEG NEG Urine Leukocyte Esterase NEG NEG Total Creatine Kinase 188 39-308 U/L Creatine Kinase MB 6.7 0.5-3.6 ng/ml Creatine Kinase MB Ratio 3.6 0-3.0 Bedside Glucose 99 70-99 mg/dl Test 12/18/16 06:36 Range/Units White Blood Count 3.66 4.8-10.8 K/uL Red Blood Count 4.89 4.7-6.1 M/uL Hemoglobin 15.2 14.0-18.0 g/dL Hematocrit 44.8 42-52 % Mean Corpuscular Volume 91.6 80-100 fL Mean Corpuscular Hemoglobin 31.1 25-34 pg Mean Corpuscular Hemoglobin Concent 33.9 32-36 g/dl Platelet Count 123 130-400 K/uL Mean Platelet Volume 10.5 7.4-10.4 fL Neutrophils (%) (Auto) 48.2 % Lymphocytes (%) (Auto) 41.0 % Monocytes (%) (Auto) 7.7 % Eosinophils (%) (Auto) 2.5 % Basophils (%) (Auto) 0.3 % Neutrophils # (Auto) 1.77 1.4-6.5 K/uL Lymphocytes # (Auto) 1.50 1.2-3.4 K/uL Monocytes # (Auto) 0.28 0.11-0.59 K/uL Eosinophils # (Auto) 0.09 0-0.5 K/uL Basophils # (Auto) 0.01 0-0.2 K/uL RDW Standard Deviation 42.6 36.4-46.3 fL RDW Coefficient of Variation 12.6 11.5-14.5 % Immature Granulocyte % (Auto) 0.3 % Immature Granulocyte # (Auto) 0.01 0.00-0.02 K/uL Prothrombin Time 10.7 9.0-12.0 SECONDS Prothromb Time International Ratio 1.0 0.9-1.1 Activated Partial Thromboplast Time 27.1 21.0-31.0 SECONDS Partial Thromboplastin Ratio 1.0 Sodium Level 142 136-145 mmol/L Potassium Level 4.5 3.5-5.1 mmol/L Chloride Level 110 98-107 mmol/L Carbon Dioxide Level 26 21-32 mmol/L Anion Gap 6.0 3-11 mmol/L Blood Urea Nitrogen 27 7-18 mg/dl Creatinine 1.50 0.60-1.40 mg/dl Est Creatinine Clear Calc Drug Dose 45.2 ml/min Estimated GFR () 53.5 Estimated GFR (Non- 46.2 BUN/Creatinine Ratio 17.8 10-20 Random Glucose 93 70-99 mg/dl Calcium Level 8.6 8.5-10.1 mg/dl Magnesium Level 2.2 1.8-2.4 mg/dl Total Bilirubin 0.4 0.2-1 mg/dl Direct Bilirubin < 0.1 0-0.2 mg/dl Aspartate Amino Transf (AST/SGOT) 24 15-37 U/L Alanine Aminotransferase (ALT/SGPT) 26 12-78 U/L Alkaline Phosphatase 76 45-117 U/L Total Creatine Kinase 137 39-308 U/L Creatine Kinase MB 4.3 0.5-3.6 ng/ml Creatine Kinase MB Ratio 3.1 0-3.0 Troponin I 1.520 0-0.045 ng/ml Total Protein 6.5 6.4-8.2 gm/dl Albumin 3.3 3.4-5.0 gm/dl Microbiology Results 12/17/16 Urine Culture, Received Pending Diagnostic Radiology Patient Name: LATONYA HAHN Unit Number: [id number] Dictated: 12/17/161104 Transcribed: 12/17/161104 EV Printed Date/Time: [~ rep prt dt]/[~ rep prt tm] [~ rep ct labl] - [~ rep ct ivnm] [facility] [place] [address] Dictated: 12/17/161104 Transcribed: 12/17/161104 EV Printed Date/Time: [~ rep prt dt]/[~ rep prt tm] [~ rep ct labl] - [~ rep ct ivnm] CT SCAN OF THE BRAIN WITHOUT IV CONTRAST CLINICAL HISTORY: Right upper extremity weakness/numbness. COMPARISON STUDY: No priors. TECHNIQUE: Unenhanced axial CT scan of the brain is performed from the vertex to the skull base. CT DOSE: 537.48 mGy.cm FINDINGS: Brain parenchyma: There are age-related involutional changes noting mild subcortical and periventricular microangiopathic change. There is no hemorrhage, mass effect, or evidence of acute territorial ischemia by CT criteria. Paez-white matter is preserved. No extra-axial fluid collection is seen. Ventricles, sulci, cisterns: Prominent secondary to involutional change. Intracranial vasculature: There is atherosclerotic calcification of the cavernous carotid arteries. Calvarium: Unremarkable. Sinuses and mastoids: The visualized paranasal sinuses are clear. Findings suggest previous left mastoid surgery. There is a small left mastoid effusion. The right mastoid air cells are well pneumatized. Orbits: The bony orbits are grossly intact. There are bilateral ocular lens implants. IMPRESSION: There is no hemorrhage, mass effect, or evidence of acute territorial ischemia by CT criteria. Electronically signed by: Billy Mckeon M.D. 12/17/2016 11:08 AM Dictated Date/Time: 12/17/2016 11:05 AM The status of this report is Signed. Draft = Not yet reviewed or approved by Radiologist. Signed = Reviewed and approved by Radiologist. <AttendingPhy></AttendingPhy> <FamilyPhy>Emy Irving DO</FamilyPhy> < PrimaryPhy>Emy Irving DO</PrimaryPhy> <UnitNumber>[id number]</UnitNumber > <VisitNumber>[id number]</VisitNumber> <PatientName>LATONYA HAHN</ PatientName> <DateOfBirth>1945</DateOfBirth> <Location>[facility]</Location> < ServiceDate>12/17/16</ServiceDate> <MNE>ESINDI</MNE> <OrderingPhy>Boni Brewer M.D.</OrderingPhy> <OrderingPhyMNE>f rep ord dr morales</OrderingPhyMNE> < DictatingPhyMNE>f rep dict dr morales</DictatingPhyMNE> <CCListMNE>f rep ct mne</ CCListMNE> <AdmittingPhyMNE>f pt admit dr morales</AdmittingPhyMNE> <AttendingPhyMNE >f pt attend dr morales</AttendingPhyMNE> <ConsultingPhyMNE>f pt consult dr morales</ConsultingPhyMNE> <FamilyPhyMNE>f pt fam dr morales</FamilyPhyMNE> <OtherPhyMNE>f pt other dr morales</OtherPhyMNE> < PrimaryPhyMNE>f pt prim care dr morales</PrimaryPhyMNE> <ReferringPhyMNE>f pt referring dr morales</ReferringPhyMNE> Patient Name: LATONYA HAHN Unit Number: [id number] Dictated: 12/17/161149 Transcribed: 12/17/161149 EV Printed Date/Time: [~ rep prt dt]/[~ rep prt tm] [~ rep ct labl] - [~ rep ct ivnm] [facility] [place] [address] Dictated: 12/17/161149 Transcribed: 12/17/161149 EV Printed Date/Time: [~ rep prt dt]/[~ rep prt tm] [~ rep ct labl] - [~ rep ct ivnm] SINGLE VIEW CHEST CLINICAL HISTORY: Tingling and numbness. Strokelike symptoms. FINDINGS: 2 AP, portable, upright chest radiographs are obtained. No prior studies are available for comparison at the time of dictation. The examination is degraded by portable technique and patient rotation. The cardiomediastinal silhouette is unremarkable. There is atherosclerotic calcification of the thoracic aorta. The lungs and pleural spaces are clear. No pneumothorax is seen. The skeletal structures are osteopenic. Arthritic change is seen in the shoulders and thoracic spine. IMPRESSION: No acute cardiopulmonary abnormality. Electronically signed by: Billy Mckeon M.D. 12/17/2016 11:51 AM Dictated Date/Time: 12/17/2016 11:50 AM The status of this report is Signed. Draft = Not yet reviewed or approved by Radiologist. Signed = Reviewed and approved by Radiologist. <AttendingPhy></AttendingPhy> <FamilyPhy>Ricotta, Emy M., DO</FamilyPhy> < PrimaryPhy>Emy Irving., DO</PrimaryPhy> <UnitNumber>[id number]</UnitNumber > <VisitNumber>[id number]</VisitNumber> <PatientName>LATONYA HAHN</ PatientName> <DateOfBirth>1945</DateOfBirth> <Location>[facility]</Location> < ServiceDate>12/17/16</ServiceDate> <MNE>ESINDI</MNE> <OrderingPhy>Boni Brewer M.D.</OrderingPhy> <OrderingPhyMNE>f rep ord dr morales</OrderingPhyMNE> < DictatingPhyMNE>f rep dict dr morales</DictatingPhyMNE> <CCListMNE>f rep ct andrew</ CCListMNE> <AdmittingPhyMNE>f pt admit dr morales</AdmittingPhyMNE> <AttendingPhyMNE >f pt attend dr morales</AttendingPhyMNE> <ConsultingPhyMNE>f pt consult dr morales</ConsultingPhyMNE> <FamilyPhyMNE>f pt fam dr morales</FamilyPhyMNE> <OtherPhyMNE>f pt other dr morales</OtherPhyMNE> < PrimaryPhyMNE>f pt prim care dr morales</PrimaryPhyMNE> <ReferringPhyMNE>f pt referring dr morales</ReferringPhyMNE> EKG EKG shows normal sinus rhythm at 76 bpm, there are no acute ST-T changes. Impression Assessment and Plan Right upper extremity numbness/generalized weakness/elevated troponin-- All symptoms have resolved. The patient will be admitted to telemetry for serial cardiac enzymes, cardiac rhythm monitoring and a 2-D echocardiogram with Dopplers. Order MRI of brain combo, MRA of head without contrast, an MRA of the neck combo. Aspirin 81 mg by mouth daily. Hypertension/renal insufficiency--hold lisinopril 20 mg by mouth daily. If systolic blood pressure greater than 160 and pulse is less than 70 will add hydralazine IV. If systolic blood pressure is greater than 160 and pulse is greater than 70 will add Lopressor IV Hyperlipidemia--continue Zetia 10 mg by mouth daily and omega-3 fatty acids 1 capsule daily. Level of Care Telemetry Advanced Directives Existing Advance Directive: No Existing Living Will: No Existing Power of Agriculture Intern: No Resuscitation Status FULL RESUSCITATION VTE Prophylaxis VTE Risk Assessment Done? Y/N: Yes Risk Level: Moderate Given or contraindicated: SCD's Social Service Consult None Apply
--- NOTE | 2016-12-18 09:58 | Cardiology Follow-Up ---
Subjective Date of Service: Dec 18, 2016. Pt evaluation today including: conversation w/ patient, conversation w/ family , physical exam, lab review, review of studies, review of inpatient medication list History of Present Illness This is a 71-year-old male who has a history of hypertension, hypercholesterolemia, neuropathy and chronic kidney disease and no known heart disease. He presented to the emergency room today with an episode of weakness and shortness of breath. He does have a history of burning right arm discomfort for 3 or 4 months and has been diagnosed with a neuropathy. This is R arm only, usually at night in bed, not aware of it during the day when he is active. He does not think there is no exertional component to it. He does not have chest discomfort or palpitations and has no left arm symptoms. He does recall a history of a heart murmur. 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 He awoke yesterday morning (the next day) at 3: 39AM to go to the bathroom, he felt odd and SOB, got up out of bed and felt very weak and sank to the floor without LOC. He had no chest pain or palpitations. He went back to bed and felt fine the next morning and thereafter. He reports no exertional symptoms or decrease in exercise capacity lately. In the emergency room his electrocardiogram was unremarkable and he was noted to have a [id number] troponin elevation to 2.1. He feels well today, he has had no further faint episodes. He did have the right arm discomfort through the night, which once again was positional. That has gone away now. Social History Smoking Status: Never Smoker History of Alcohol Use: Yes (OCCASSIONALLY) Review of Systems Respiratory: + see HPI, + shortness of breath, No cough, No wheezing, No dyspnea on exertion Cardiac: + see HPI, No chest pain, No orthopnea, No PND, No edema, No palpitations Medications Cardiovascular: Item Value Date Time Aspirin 81 mg 12/18/16 0900 (Ecotrin Tab) QAM/PO 12/18/16 08 EZETIMIBE 10 mg 12/18/16 0900 (Zetia Tab) QAM/PO 12/18/16 0811 Objective Vital Signs Past 12 Hours Date Time Temp Pulse Resp B/P (MAP) Pulse Ox O2 Delivery O2 Flow Rate FiO2 12/18/16 08:00 Room Air 12/18/16 07:53 36.3 59 16 149/79 (102) 96 Room Air 12/18/16 04:23 36.5 59 18 121/70 (87) 97 Room Air 12/18/16 04:00 Room Air 12/18/16 00:15 36.7 68 20 108/65 (79) 96 Room Air 12/18/16 00:00 Room Air Last Recorded Weight-Kilograms: 74.200 Physical Exam Constitutional: General Apperance: heathly-appearing Level of Distress: NAD Lungs: Respiratory effort: no dyspnea, good air movement Auscultation: breath sounds normal, no wheezing Cardiovascular: Heart Auscultation: RRR, no rubs, no gallops, II/ WSM Peripheral Pulses: Bruits: none appreciated Extremities: no edema Data Laboratory Results: Last 24 Hours Test 12/17/16 10:50 12/17/16 17:45 12/17/16 21:43 12/18/16 06:16 White Blood Count 3.04 K/uL Red Blood Count 4.68 M/uL Hemoglobin 14.6 g/dL Hematocrit 42.6 % Mean Corpuscular Volume 91.0 fL Mean Corpuscular Hemoglobin 31.2 pg Mean Corpuscular Hemoglobin Concent 34.3 g/dl Platelet Count 130 K/uL Mean Platelet Volume 10.3 fL Neutrophils (%) (Auto) 45.8 % Lymphocytes (%) (Auto) 41.1 % Monocytes (%) (Auto) 10.5 % Eosinophils (%) (Auto) 2.0 % Basophils (%) (Auto) 0.3 % Neutrophils # (Auto) 1.39 K/uL Lymphocytes # (Auto) 1.25 K/uL Monocytes # (Auto) 0.32 K/uL Eosinophils # (Auto) 0.06 K/uL Basophils # (Auto) 0.01 K/uL RDW Standard Deviation 43.0 fL RDW Coefficient of Variation 13.0 % Immature Granulocyte % (Auto) 0.3 % Immature Granulocyte # (Auto) 0.01 K/uL Prothrombin Time 10.7 SECONDS Prothromb Time International Ratio 1.0 Activated Partial Thromboplast Time 26.3 SECONDS Partial Thromboplastin Ratio 1.0 Sodium Level 142 mmol/L Potassium Level 4.2 mmol/L Chloride Level 109 mmol/L Carbon Dioxide Level 27 mmol/L Anion Gap 6.0 mmol/L Blood Urea Nitrogen 28 mg/dl Creatinine 1.50 mg/dl Est Creatinine Clear Calc Drug Dose 45.2 ml/min Estimated GFR () 53.5 Estimated GFR (Non- 46.2 BUN/Creatinine Ratio 18.9 Random Glucose 105 mg/dl Estimated Average Glucose 108 mg/dl Hemoglobin A1c 5.4 % Calcium Level 9.2 mg/dl Magnesium Level 2.1 mg/dl Total Bilirubin 0.4 mg/dl Direct Bilirubin 0.1 mg/dl Aspartate Amino Transf (AST/SGOT) 35 U/L Alanine Aminotransferase (ALT/SGPT) 28 U/L Alkaline Phosphatase 84 U/L Troponin I 2.110 ng/ml 2.030 ng/ml Total Protein 6.7 gm/dl Albumin 3.5 gm/dl Triglycerides Level 140 mg/dl Cholesterol Level 207 mg/dl HDL Cholesterol 67 mg/dl LDL Cholesterol, Calculated 112 mg/dl VLDL Cholesterol, Calculated 28 mg/dl Cholesterol/HDL Ratio 3.1 Lipase 326 U/L Thyroid Stimulating Hormone (TSH) 1.130 uIu/ml Lyme Disease IgG Antibody NEG Lyme Disease IgM Antibody NEG Urine Color YELLOW Urine Appearance CLEAR Urine pH 5.0 Urine Specific [place] 1.017 Urine Protein NEG Urine Glucose (UA) NEG Urine Ketones NEG Urine Occult Blood NEG Urine Nitrite NEG Urine Bilirubin NEG Urine Urobilinogen NEG Urine Leukocyte Esterase NEG Total Creatine Kinase 188 U/L Creatine Kinase MB 6.7 ng/ml Creatine Kinase MB Ratio 3.6 Bedside Glucose 99 mg/dl Test 12/18/16 06:36 White Blood Count 3.66 K/uL Red Blood Count 4.89 M/uL Hemoglobin 15.2 g/dL Hematocrit 44.8 % Mean Corpuscular Volume 91.6 fL Mean Corpuscular Hemoglobin 31.1 pg Mean Corpuscular Hemoglobin Concent 33.9 g/dl Platelet Count 123 K/uL Mean Platelet Volume 10.5 fL Neutrophils (%) (Auto) 48.2 % Lymphocytes (%) (Auto) 41.0 % Monocytes (%) (Auto) 7.7 % Eosinophils (%) (Auto) 2.5 % Basophils (%) (Auto) 0.3 % Neutrophils # (Auto) 1.77 K/uL Lymphocytes # (Auto) 1.50 K/uL Monocytes # (Auto) 0.28 K/uL Eosinophils # (Auto) 0.09 K/uL Basophils # (Auto) 0.01 K/uL RDW Standard Deviation 42.6 fL RDW Coefficient of Variation 12.6 % Immature Granulocyte % (Auto) 0.3 % Immature Granulocyte # (Auto) 0.01 K/uL Prothrombin Time 10.7 SECONDS Prothromb Time International Ratio 1.0 Activated Partial Thromboplast Time 27.1 SECONDS Partial Thromboplastin Ratio 1.0 Sodium Level 142 mmol/L Potassium Level 4.5 mmol/L Chloride Level 110 mmol/L Carbon Dioxide Level 26 mmol/L Anion Gap 6.0 mmol/L Blood Urea Nitrogen 27 mg/dl Creatinine 1.50 mg/dl Est Creatinine Clear Calc Drug Dose 45.2 ml/min Estimated GFR () 53.5 Estimated GFR (Non- 46.2 BUN/Creatinine Ratio 17.8 Random Glucose 93 mg/dl Calcium Level 8.6 mg/dl Magnesium Level 2.2 mg/dl Total Bilirubin 0.4 mg/dl Direct Bilirubin < 0.1 mg/dl Aspartate Amino Transf (AST/SGOT) 24 U/L Alanine Aminotransferase (ALT/SGPT) 26 U/L Alkaline Phosphatase 76 U/L Total Creatine Kinase 137 U/L Creatine Kinase MB 4.3 ng/ml Creatine Kinase MB Ratio 3.1 Troponin I 1.520 ng/ml Total Protein 6.5 gm/dl Albumin 3.3 gm/dl Imaging: Echocardiography shows normal left ventricular systolic function, mild diastolic dysfunction and mild left ventricular hypertrophy. He does have moderate mitral regurgitation and moderate aortic stenosis. Telemetry reviewed: Sinus rhythm, no significant ectopy Assessment and Plan 1. Weakness, SOB: I still suspect an arrhythmia, perhaps transient AF or bradycardia. He had no palpitations and the episode was evidently relatively brief but an arrhythmia might explain an elevated Troponin now and would be consistent with a decreasing pattern that we are seeing. I will plan outpatient custodial monitoring if we do not come up with a specific diagnosis this admission. 2. Elevated troponin: He does not seem to have significant CAD based on his lack of exertional symptoms, his enzyme trend is a decreasing pattern which could indicate a myocardial infarction several days ago although his symptoms do not suggest it. I think would be prudent to do a stress test however and I will arrange that. If this is negative I would not pursue further coronary evaluation. 3. R arm discomfort: Doubt this is cardiac or related to his presentation. It appears to be positional when he is laying in bed, it is not aggravated at all by work and does not come on with strenuous activities. 4. MR and : He does have mitral regurgitation, however it is not significant probably does not explain his symptoms. We will need to watch this over the long run. Thank you for allowing me to participate in his care.
--- NOTE | 2016-12-18 12:09 | Clinical Documentation Query ---
CLINICAL DOCUMENTATION QUERY Dr. SEAY, In your clinical opinion is this patient being managed for: ( ) Type II MT in the setting of suspected arrhythmia ( ) Not Agree ( ) Other explanation of clinical findings (Please Explain) ( ) Unable to determine (Please Define) ( ) Need to Discuss The medical record reflects the following clinical findings, treatment, and risk factors. Clinical Indicators:71 yo male presenting with RUE weakness and elevated troponins. Trops 2.11/ 2.03/1.52. Cardiology consult suggests possible arrhythmia due to patient reporting palpitations. Treatment: tele, cardilogy consult, serial cardiac enzymes, stat ASA in ER, exercise ECHO and ECHO, continue lisinopril, ASA and zetia Risk Factors: age, HTN, hyperlipidemia, CKD stage III, Please clarify and document your clinical opinion in the progress notes and discharge summary. Terms such as "probable", "suspected", "likely", "questionable", "possible", or "still to be ruled out" are acceptable. IF IN AGREEMENT, YOU MUST DOCUMENT ABOVE DIAGNOSTIC STATEMENT IN DAILY PROGRESS NOTES AND DISCHARGE SUMMARY. This document is not part of the patient's record. Thank You, Yenifer De Souza, RN [phone]
[2016-12-18 15:24] VITALS: BP 133/81; PULSE 72; TEMP 36.9; O2SAT 96
--- NOTE | 2016-12-18 15:35 | EXERCISE STRESS ECHO ---
*NOTICE TO RECEIVING DEMOCRAT AGENCY This information is strictly Confidential and protected under [place] law. [place] law prohibits you from making any further disclosure of this information unless further disclosure is expressly permitted by the written consent of the person to whom it pertains or is authorized by law. A general authorization for the release of medical or other information is not sufficient for this purpose. Hospital accepts no responsibility if the information is made available to any other person, INCLUDING THE PATIENT. Interpretation Summary * Name: LATONYA HAHN Study Date: 12/18/2016 10:00 AM BP: 160/86 mmHg * Patient Location: [facility]\S\N281\S\2 HR: 74 * : 1945 (M/d/yyyy) Gender: Male Height: 69 in * Age: 71 yrs Ethnicity: [place] Weight: 163 lb * Ordering Physician: Saleem Guillen * Referring Physician: Self, Referred * Performed By: Radha Montaño RDCS * * Reason For Study: Chest pain * BSA: 1.9 m2 * -- Conclusions -- * Normal stress echocardiogram without evidence of inducible ischemia Procedure Details * ECHOEX, CPT #37446 Left Ventricular Findings with Stress * Normal stress echocardiogram without evidence of inducible ischemia Stress Parameters * Normal baseline electrocardiogram. * Stress ECG: No ST changes. No arrhythmias. * The stress portion of this study was personally supervised by the undersigned interpreting physician. * Rest heart rate was '74' BPM. * Rest blood pressure was '160/86' * Maximum heart rate achieved was 148 bpm. * Maximum heart rate was 99 % of maximum age-predicted heart rate. * Maximum blood pressure was '160/86' * Total exercise time was '6:12' * Maximum exercise MET level achieved was '7.30' METS * Maximum treadmill speed was '3.40' miles per hour. * Maximum treadmill elevation was '14.00'% grade. * Exercise was terminated due to 'achieving target heart rate' Left Ventricular Findings with Stress * The study was diagnostic quality. * Baseline EKG was normal At peak exertion there was some minor flat ST segment depressions which resolved quickly in recovery Baseline echocardiographic images were normal There was normal augmentation of all salas without inducible wall motion abnormalities at peak exertion No symptoms reported during the test Moody treadmill score is 1 (moderate risk) Normal heart rate and blood pressure response to exercise Normal heart rate recovery
--- NOTE | 2016-12-18 16:35 | Discharge Instructions ---
Discharge Instructions Date of Service Dec 18, 2016. Admission Reason for Admission: Elevated Troponin, Rue Numbness Discharge Discharge Diagnosis / Problem: Elevated troponin Discharge Goals Goal(s): Decrease discomfort, Diagnostic testing, Therapeutic intervention Activity Recommendations Activity Limitations: resume your previous activity (as tolerated) . Instructions / Follow-Up Instructions / Follow-Up You were admitted due to an elevated troponin (a cardiac enzyme) and numbness in your right arm. The numbness appears to be more related to pinches nerves as this is occurring after sleeping on your arm and resolves with time. A stroke work up was completed including a head CT, brain MRI and further imaging of the arteries in your head and neck, all of which were negative. A stress test was also done, and this was normal. Cardiology evaluated you, and your elevated troponin appears to be related to a suspected arrhythmia, or abnormal heart rhythm. These enzymes are now trending down. Cardiology will set you up with a 30 day event monitor to check for any arrhythmias, and you will follow up with them regarding the results. Medications: *No changes have been made to your medications, please continue them as prescribed. Follow up: *Cardiology will set you up for the 30 day event monitor as well as a follow up appointment. *You have been scheduled to follow up at your primary care provider's office with Melyssa Guajardo PA-C on December 25 at 10:00 am. If you cannot make this appointment, please call [phone]. Please seek medical attention if you experience fevers, chills, sweats, dizziness/lightheadedness, loss of consciousness, fall, chest pain, shortness of breath, nausea, vomiting, or worsening numbness/tingling. Current Hospital Diet Patient's current hospital diet: AHA Diet (Heart Healthy), Diabetes Type 2 Diet Discharge Diet Recommended Diet: AHA Diet (Heart Healthy) Procedures Procedures Performed: Stress echocardiogram Pending Studies Studies pending at discharge: no Laboratory Results Hemoglobin A1c Test 12/17/16 10:50 Range/Units Estimated Average Glucose 108 mg/dl Hemoglobin A1c 5.4 4.5-5.6 % Lipid Panel Test 12/17/16 10:50 Range/Units Triglycerides Level 140 0-150 mg/dl Cholesterol Level 207 H 0-200 mg/dl HDL Cholesterol 67 mg/dl Cholesterol/HDL Ratio 3.1 LDL Cholesterol, Calculated 112 mg/dl Medical Emergencies . Who to Call and When: Medical Emergencies: If at any time you feel your situation is an emergency, please call 911 immediately. . Non-Emergent Contact Non-Emergency issues call your: Primary Care Provider, Student Accounts Coordinator Call Non-Emergent contact if: you have a fever, you have any medication questions . Past History Medical & Surgical History: (1) RUE numbness (2) Elevated troponin . "Provider Documentation" section prepared by Asya Beckwith. . VTE Core Measure Inpt VTE Proph given/why not?: SCD's
[2016-12-18 16:40] VITALS: BP 133/81; PULSE 72; TEMP 36.9; O2SAT 96
--- NOTE | 2016-12-18 16:58 | Discharge Summary ---
Discharge Summary Date of Service Dec 18, 2016. Discharge Summary Admission Date: Dec 17, 2016 at 12:53 Discharge Date: Dec 18, 2016 Discharge Disposition: Home Principal Diagnosis: Elevated troponin Immunizations: Have You Had Influenza Vaccine: Unknown History of Tetanus Vaccine?: Unknown History of Pneumococcal: Unknown History of Hepatitis B Vaccine: Unknown Procedures: Stress echo: Interpretation Summary * Name: LATONYA HAHN Study Date: 12/18/2016 10:00 AM BP: 160/86 mmHg * Patient Location: [facility]\S\81\S\2 HR: 74 * : 1945 (M/d/yyyy) Gender: Male Height: 69 in * Age: 71 yrs Ethnicity: CA Weight: 163 lb * Ordering Physician: Saleem Guillen * Referring Physician: Self, Referred * Performed By: Radha Montaño RDCS * * Reason For Study: Chest pain * BSA: 1.9 m2 * -- Conclusions -- * Normal stress echocardiogram without evidence of inducible ischemia Procedure Details * ECHOEX, CPT #42325 Left Ventricular Findings with Stress * Normal stress echocardiogram without evidence of inducible ischemia Stress Parameters * Normal baseline electrocardiogram. * Stress ECG: No ST changes. No arrhythmias. * The stress portion of this study was personally supervised by the undersigned interpreting physician. * Rest heart rate was '74' BPM. * Rest blood pressure was '160/86' * Maximum heart rate achieved was 148 bpm. * Maximum heart rate was 99 % of maximum age-predicted heart rate. * Maximum blood pressure was '160/86' * Total exercise time was '6:12' * Maximum exercise MET level achieved was '7.30' METS * Maximum treadmill speed was '3.40' miles per hour. * Maximum treadmill elevation was '14.00'% grade. * Exercise was terminated due to 'achieving target heart rate' Left Ventricular Findings with Stress * The study was diagnostic quality. * Baseline EKG was normal At peak exertion there was some minor flat ST segment depressions which resolved quickly in recovery Baseline echocardiographic images were normal There was normal augmentation of all salas without inducible wall motion abnormalities at peak exertion No symptoms reported during the test Moody treadmill score is 1 (moderate risk) Normal heart rate and blood pressure response to exercise Normal heart rate recovery Consultations: Cardiology--Dr. Guillen Medication Reconciliation Continued Medications: Ascorbic Acid (Vitamin C) 500 Mg Cap 1 CAP PO QAM Aspirin (Aspirin Chewable) 81 Mg Chew 81 MG PO QAM, TAB Ezetimibe (Zetia) 10 Mg Tab 10 MG PO QAM, TAB Lisinopril (Lisinopril) 20 Mg Tab 20 MG PO DAILY Manley-3 Fatty Acids (Manley 3) 1 Cap Cap 1 CAP PO QAM Tadalafil (Cialis) 20 Mg Tab 20 MG PO DAILY PRN for PRN, TAB Discharge Exam Patient reports feeling well. He has no complaints currently and did not have any chest pain during his stress test. His RUE numbness is resolved and he states it actually just happens when he sleeps on that side. The patient denies fevers, chills, sweats, chest pain, palpitations, claudication, cough, wheezing, shortness of breath, nausea, vomiting, abdominal pain, dysuria, hematuria, urinary retention, paralysis, weakness, numbness and tingling. Review of Systems: Constitutional: No fever, No chills, No sweats, No weakness, No fatigue Eyes: No worsening of vision, No eye pain, No diplopia ENT: No hearing loss, No sore throat, No trouble swallowing Respiratory: No cough, No wheezing, No shortness of breath Cardiovascular: No chest pain, No claudication, No palpitations Abdomen: No pain, No nausea, No vomiting Musculoskeletal: No joint pain, No muscle pain, No swelling Genitourinary - Male: No hematuria, No dysuria, No urinary retention Neurologic: No paralysis, No weakness, No numbness/tingling Integumentary: No rash, No itch, No color change Physical Exam: General Appearance: WD/WN, no apparent distress Eyes: normal inspection, PERRL, EOMI ENT: normal ENT inspection, hearing grossly normal, pharynx normal Neck: supple, no JVD, trachea midline Respiratory/Chest: lungs clear, normal breath sounds, no respiratory distress Cardiovascular: regular rate, rhythm, no gallop, no murmur Abdomen / GI: normal bowel sounds, non tender, soft Extremities: normal inspection, no calf tenderness, no pedal edema Neurologic/Psychiatric: alert, normal mood/affect, oriented x 3 Skin: normal color, warm/dry, no rash Hospital Course 71 y/o male with a history of HTN, HLD, and CKD stage III who presents with RUE numbness/tingling. RUE numbness -Admit to tele. Pt in SB/SR with HR 50s-70s -Head CT, brain MRI, head and neck MRA unremarkable -Resting echo shows LVEF of 55-60%, grade 1 diastolic dysfunction and mild hypokinesis of anterior and lateral apex that is stable -Numbness resolved Elevated troponin--improving -Stress echo negative -Troponin trending down -Cardiology was consulted, elevated troponin likely due to arrhythmia rather than CAD. Will set up with 30 day event monitor and outpt follow up HTN--stable -Continue lisinopril 20 mg PO qd HLD -Continue Zetia 10 mg PO qd CKD stage III--stable -Baseline creatinine around 1.4. Creatinine stable, at baseline Code Status -Level I, FULL RESUSCITATION STATUS Dispo -Discharge to home. Cardio will set up event monitor and f/u appt Total Time Spent: Greater than 30 minutes This includes examination of the patient, discharge planning, medication reconciliation, and communication with other providers. Discharge Instructions Please refer to the electronic Patient Visit Report (Discharge Instructions) for additional information. Additional Copies To Emy Irving DO
== END 2016-12-18 16:57 | disposition home or self-care (01) | DRG 948 ==
LOC: C.EDB 10:11 → C.MED 12:53 → ENRESERV 13:55
PROVIDERS: ADMIT Hospitalist; ATTEND Hospitalist
DX: R74.8 Abnormal levels of other serum enzymes (principal); I49.9 Cardiac arrhythmia, unspecified; R20.0 Anesthesia of skin; R53.1 Weakness; G62.9 Polyneuropathy, unspecified; I08.0 Rheumatic disorders of both mitral and aortic valves; I12.9 Hypertensive chronic kidney disease with stage 1 through stage 4 chronic kidney disease, or unspecified chronic kidney disease; N18.3 Chronic kidney disease, stage 3 (moderate); E78.5 Hyperlipidemia, unspecified; E78.00 Pure hypercholesterolemia, unspecified; Z23 Encounter for immunization; Z91.81 History of falling; Z79.82 Long term (current) use of aspirin; Z79.899 Other long term (current) drug therapy

== ENCOUNTER → 2016-12-25 | Outpatient (CLI) | payer BC ==
[~2016-12-25] MED LIST changes: -AMLO-114 PO; +LSN20 PO; -REDCAP2 PO
[2016-12-25 12:02] LABS: BASO % 0.3 %; BASO ABS # 0.01 K/uL (0-0.2); COMPLETE YES; EOS % 2.9 %; HEMATOCRIT 44.7 % (42-52); IG% 0.3 %; LYMPH % 38.9 %; LYMPH ABS # 1.36 K/uL (1.2-3.4); MEAN CELL VOLUME 91.6 fL (80-100); MEAN CORPUSCULAR HEMOGLOBIN 32.6 pg (25-34); MEAN CORPUSCULAR HGB CONC 35.6 g/dl (32-36); MEAN PLATELET VOLUME 10.9 fL (7.4-10.4); MONO % 8.6 %; PLATELET COUNT 140 K/uL (130-400); RED BLOOD COUNT 4.88 M/uL (4.7-6.1)
== END | disposition home or self-care (01) ==
LOC: C.LABPBG 10:40
PROVIDERS: ATTEND Physician Assistant
DX: R74.8 Abnormal levels of other serum enzymes (principal); R53.1 Weakness

== ENCOUNTER → 2017-07-02 | Outpatient (CLI) | payer BC ==
[2017-07-02 13:05] LABS: BASO % 0.3 %; BASO ABS # 0.01 K/uL (0-0.2); EOS % 3.8 %; EOS ABS # 0.13 K/uL (0-0.5); HEMATOCRIT 45.4 % (42-52); HEMOGLOBIN 15.5 g/dL (14.0-18.0); IG# 0.01 K/uL (0.00-0.02); LYMPH % 39.4 %; LYMPH ABS # 1.36 K/uL (1.2-3.4); MEAN CORPUSCULAR HEMOGLOBIN 31.1 pg (25-34); MEAN CORPUSCULAR HGB CONC 34.1 g/dl (32-36); MEAN PLATELET VOLUME 10.1 fL (7.4-10.4); MONO % 9.3 %; MONO ABS # 0.32 K/uL (0.11-0.59); NEUT % 46.9 %; NEUT ABS # 1.62 K/uL (1.4-6.5); PLATELET COUNT 158 K/uL (130-400); RED CELL DISTRIBUTION WIDTH CV 13.3 % (11.5-14.5); RED CELL DISTRIBUTION WIDTH SD 44.2 fL (36.4-46.3); WHITE BLOOD COUNT 3.45 K/uL (4.8-10.8)
[2017-07-02 14:30] LABS: BLOOD UREA NITROGEN 30 mg/dl (7-18); CALCIUM 9.1 mg/dl (8.5-10.1); CARBON DIOXIDE 26 mmol/L (21-32); CREATININE 1.51 mg/dl (0.60-1.40); GLUCOSE 97 mg/dl (70-99); POTASSIUM 4.2 mmol/L (3.5-5.1); SODIUM 139 mmol/L (136-145)
[2017-07-02 14:41] LABS: CHOLESTEROL 231 mg/dl (0-200); LDL CHOLESTEROL CALCULATED 136 mg/dl
== END | disposition home or self-care (01) ==
LOC: C.LABPBG 08:53
PROVIDERS: ATTEND Family Medicine
DX: I10 Essential (primary) hypertension (principal); E78.5 Hyperlipidemia, unspecified; N18.3 Chronic kidney disease, stage 3 (moderate)

== ENCOUNTER → 2017-07-25 | Outpatient (CLI) | payer BC ==
[2017-07-25 14:05] LABS: BLOOD UREA NITROGEN 19 mg/dl (7-18); CARBON DIOXIDE 29 mmol/L (21-32); CREATININE 1.47 mg/dl (0.60-1.40); GLUCOSE 88 mg/dl (70-99); POTASSIUM 4.3 mmol/L (3.5-5.1); SODIUM 140 mmol/L (136-145)
== END | disposition home or self-care (01) ==
LOC: C.LABPBG 08:00
PROVIDERS: ATTEND Family Medicine
DX: I12.9 Hypertensive chronic kidney disease with stage 1 through stage 4 chronic kidney disease, or unspecified chronic kidney disease (principal); E78.5 Hyperlipidemia, unspecified; N18.3 Chronic kidney disease, stage 3 (moderate)

== ENCOUNTER 2024-09-22 20:51 | Observation (INO) ==
[2024-09-22] MEDS: ASPIRIN CHEW 324 MG PO STA (21:03)
--- NOTE | 2024-09-22 21:05 | Emergency Department Note ---
Impression & Plan Chest pain, Elevated troponin I level ED Provider Note NAME: LATONYA HAHN AGE: 79 SEX: M : 1945 ARRIVES VIA: Walk-In INFORMANT: Patient, ED PROVIDER(S): Armand Davison DO CHIEF COMPLAINT: Chest pain HPI: The patient is a 79-year-old male who presented to the emergency department for chest pain. The patient describes left-sided chest pain that began around lunchtime. He states the pain is been intermittent. He states the pain is not associated with exertion or taking deep breaths. He does not feel short of breath. The patient denies having any leg swelling or leg pain. He had a recent TAVR. The patient states he does have some ecchymosis in his groin. The patient had a cardiac catheterization prior to the procedure and it was normal. ROS: See above HPI for pertinent positives & negatives. A total of 10 systems reviewed and were otherwise negative. PAST MEDICAL HISTORY: See Below PAST SURGICAL HISTORY: See Below FAMILY HISTORY: See Below SOCIAL HISTORY: See Below HOME MEDICATIONS: See Below ALLERGIES: See Below VITALS: See Below PHYSICAL EXAMINATION: GENERAL: Patient is awake alert in no acute distress patient is resting comfortably and showing no signs of anxiety EYES: The conjunctivae are clear. The pupils are round and reactive. EARS, NOSE, MOUTH AND THROAT: The nose is without any evidence of any deformity. NECK: The neck is nontender and supple. RESPIRATORY: Normal respiratory effort is noted there is no evidence of wheezing rhonchi or rales CARDIOVASCULAR: Regular rate and rhythm noted there no murmurs rubs or gallops normal S1 normal S2. GASTROINTESTINAL: The abdomen is soft. Abdomen is nontender. MUSCULOSKELETAL/EXTREMITIES: There is no evidence of gross deformity full range of motion is noted in the hips and shoulders. SKIN: There is no obvious evidence of any rash. There are no petechiae, pallor or cyanosis noted. NEUROLOGIC: Patient is awake alert and oriented x3 MEDICAL DECISION MAKING: The patient is a 79-year-old male who presented to the emergency department for an evaluation of chest pain. The patient describes left-sided chest pain which was intermittent. The patient does have a history of recent TAVR. The patient denies having any pain at this time. The patient was treated in the emergency department with aspirin. He was reevaluated multiple times. I discussed the patient's laboratory and radiographic studies with him. I discussed the limitations of the emergency far workup or chest pain with him. He was found have a slight elevation in his troponin. This could be related to his recent procedure however given his age and comorbidities I will discuss his condition with the on-call [facility] hospitalist. Triage Nursing notes reviewed. Prior medical records reviewed Vital Signs: reviewed and remarkable for no significant abnormalities Differential diagnosis: Cardiac ischemia, aortic dissection, pulmonary embolism, pneumothorax, pneumonia, pericarditis, myocarditis, esophageal rupture, GERD, cholecystitis, pancreatitis, musculoskeletal, as well as other pathologies. ER treatment provided: See below Diagnostics interpreted by me: ECG: EKG was obtained in the emergency department. My interpretation is normal sinus rhythm at 74 bpm. There is no ectopy. There is no acute ST segment abnormalities noted. This was compared to a tracing from October 11, 2019. No changes were noted. Cardiac Monitoring: An order was placed for continuous cardiac monitoring. The monitor shows a rate of 65 bpm with sinus rhythm. Laboratory studies: As stated above and show below. Imaging studies: See below. Radiographic imaging was reviewed by myself Consultation(s): I discussed this case with Dr. Resendiz who is on-call for the [facility] hospitalist group. Past Med/Surg History Problem List (Updated 09/22/24 @ 22:45 by Armand Davison DO) Elevated troponin I level (Acute) Chest pain (Acute) Statin myopathy Aortic stenosis Statin intolerance Mild ascending aorta dilation Renal cyst History of carpal tunnel release Aortic stenosis Erectile dysfunction Lumbar canal stenosis Vitamin D deficiency Left carpal tunnel syndrome COVID-19 (~10/2021) Heart murmur hx-going to see the [employer] [facility] 12/[facility] eat[place] BPH (benign prostatic hyperplasia) Leukopenia Chronic and stable-"thinks it's ok now" Hypertension Hyperlipidemia Stage 3 chronic kidney disease Follows with nephro- baseline creat 1.2-1.5 Trigeminal neuralgia of left side of face Stable- was following with neuro- follows only PRN now. Takes Carbamazepine as needed Cerebral infarction ~. Found incidentally on testing ([facility]) Thyroid nodule no surgery Peripheral neuropathy Medical History History of COVID-19 beginning 10/2021, home test, not hosp; congestion, muscle aches>resolved. Lumbar stenosis Aortic stenosis 10/2021 last echo Osteoarthritis Mild aortic stenosis Surgical History S/P left inguinal hernia repair (10/14/19) Left Open Inguinal Hernia Repair(Left) with mesh; excision of cord lipoma Dr. Dunbar 10/14/2019 History of tonsillectomy History of carpal tunnel release right H/O colonoscopy S/P tympanoplasty left S/P rotator cuff repair left S/P cataract surgery bilateral Family History Father Colorectal cancer Mother Colorectal cancer Sister Myocardial infarction Other No family history of adverse response to anesthesia Denies family history of Ovarian cancer Prostate cancer Breast cancer Lung cancer Social History Smoking Status: Never smoker Second Hand Exposure: No; Do You Dip or Chew Tobacco: Yes (quit 15 years ago-advised); Hx Alcohol Use: Yes Alcohol type: beer Alcohol Intake Frequency: 4 or More x per/Week Alcohol Intake Frequency Comment: 12/ week Hx Substance Use: No Preferred Language: Jordanian Communication Ability: Effective Visual Impairment: No Limitations Hearing Ability: Hard of Hearing Ice Skating Coach Required: No Beliefs That Will Affect Care: None marital status: Current Living Situation: Spouse current occupational status: retired Feels Safe at Home: Yes Childhood Exposure to Second-Hand Smoke: No Diet Comment: regular caffeine: Yes during the past year weight has: remained stable Dental Care, Regularly: Yes Physical Activity Frequency: 5-6 Times per Week Physical Activity Frequency Comment: walk Seatbelt Use: always Sunscreen Use: Yes Assistive Devices: None Allergies Allergies Allergy/AdvReac Type Severity Reaction Status Date / Time [id number]-[id number] Reductase Allergy Intermediate Myalgia Verified 08/04/24 06:51 Inhibitor [Odkpajt-Npj-Uqa Reductase Inhibitor] pravastatin AdvReac Severe Joint Pain Verified 08/04/24 06:51 rosuvastatin AdvReac Severe Joint Pain Verified 08/04/24 06:51 ezetimibe [From Zetia] AdvReac Intermediate Joint Pain Verified 08/04/24 06:51 OILS Allergy Mild rash Uncoded 08/04/24 06:51 Home Meds Home Medications Medication Instructions Recorded Confirmed ascorbic acid (vitamin C) 500 mg 500 mg PO QAM #90 tabs 09/28/18 08/04/24 tablet cholecalciferol (vitamin D3) 50 2,000 units PO QAM 09/28/18 08/04/24 mcg (2,000 unit) capsule fluocinonide 0.05 % topical cream 1 applic topical BID PRN Skin 09/28/18 08/04/24 Irritation #60 grams omega 3-gxo-nwd-fish oil 1,200 mg 2 cap PO QAM 09/28/18 08/04/24 (144 mg-216 mg) capsule aspirin 81 mg tablet,delayed 81 mg PO QAM 10/12/19 08/04/24 release (Danielle Low Dose Aspirin) vitamin B complex 1 tab PO QAM 01/10/20 08/04/24 sildenafil 50 mg tablet 50 mg PO UD PRN sexual activity 11/26/21 08/04/24 multivitamin 1 tab PO DAILY 02/04/24 08/04/24 Previous Rx's Medication Instructions Recorded carbamazepine 200 mg tablet 200 mg PO TID PRN neuralgia #270 04/11/22 tabs lisinopril 40 mg tablet See Rx Instructions .Route 10/20/23 .COMPLEX #90 tabs tamsulosin 0.4 mg capsule 0.4 mg PO QAM #90 caps 01/26/24 pitavastatin calcium 1 mg tablet 1 mg PO DAILY #90 tabs 05/17/24 amlodipine 5 mg tablet 5 mg PO QAM #90 tabs 07/12/24 evolocumab 140 mg/mL subcutaneous 140 mg subcut .Every 2 weeks #6 mL 08/16/24 pen injector (Sera Card) Results & Data (ED) Vital Signs Vital Signs - 24 hr 09/22/24 20:52 09/22/24 20:57 09/22/24 21:16 Temperature 36.5 C Temperature Source Temporal Artery Scan Pulse Rate 74 65 Respiratory Rate 16 Respiratory Effort / Characteristics Non-Labored Respiratory Depth Normal Blood Pressure 145/81 H Blood Pressure Mean 102 Pulse Oximetry 94 96 Oxygen Delivery Method Room Air Room Air Sepsis Recent Fever Within 48 Hours No Sepsis New/Unexplained Change in Mental Status No Sepsis Action Taken by Nursing No Action Required Home Medications Current Medication List: was personally reviewed by me Laboratory Data Attestation: I reviewed the patient's lab results. 09/22/24 21:05 09/22/24 21:05 Lab Results 09/22/24 Range/Units 21:05 WBC 4.33 L (4.8-10.8) K/ul RBC 4.58 L (4.70-6.10) M/uL Hgb 13.8 L (14.0-18.0) g/dl Hct 40.4 L (42.0-52.0) % MCV 88.2 (80.0-100.0) fL MCH 30.1 (25.0-34.0) pg MCHC 34.2 (32.0-36.0) g/dL RDW Std Deviation 40.7 (36.4-46.3) fL RDW Coeff of Constance 12.8 (11.5-14.5) % Plt Count 149 (130-400) K/uL MPV 9.7 (9.4-12.4) fL Immature Gran % (Auto) 0.5 % Neut % (Auto) 47.9 % Lymph % (Auto) 37.6 % Perkins % (Auto) 9.0 % Eos % (Auto) 4.8 % Baso % (Auto) 0.2 % Neut # (Auto) 2.07 (1.40-6.50) K/uL Lymph # (Auto) 1.63 (1.20-3.40) K/uL Perkins # (Auto) 0.39 (0.11-0.59) K/uL Eos # (Auto) 0.21 (0.00-0.50) K/uL Baso # (Auto) 0.01 (0.00-0.20) K/uL Immature Gran # (Auto) 0.02 (0.01-0.20) K/uL Sodium 138 (136-145) mmol/L Potassium 4.0 (3.5-5.1) mmol/L Chloride 106 (98-107) mmol/L Carbon Dioxide 26 (21-32) mmol/L Anion Gap 6 (3-11) BUN 28 H (6-23) mg/dl Creatinine 1.54 H (0.6-1.4) mg/dl Est Cr Clr Drug Dosing 38.9 ml/min eGFR 45.60 BUN/Creatinine Ratio 18.2 (10-20) Glucose 111 H (70-99(Fasting)) mg/dl Calcium 9.7 (8.6-10.3) mg/dl Total Bilirubin 0.5 (0.2-1.0) mg/dl AST 23 (13-39) U/L ALT 15 (7-52) U/L Alkaline Phosphatase 82 (34-104) U/L Troponin I High Sens 64.8 H* (0-20) pg/ml Total Protein 7.3 (6.0-8.3) gm/dl Albumin 4.2 (3.4-5.0) gm/dl Globulin 3.1 (2.5-4.0) gm/dl Albumin/Globulin Ratio 1.4 (0.9-2) Lipase 89 H (11-82) U/L Administered Medications Discontinued Medications Al Hydrox/Mg Hydrox/Simethicone (Aluminum/Magnesium Susp 30 Ml Udc) 30 ml PO NOW STA Stop: 09/22/24 21:15 Last Admin: 09/22/24 21:36 Dose: 30 ml Documented By: WHITNEY Aspirin (Aspirin Chew 324 Mg) 324 mg PO NOW STA Stop: 09/22/24 20:58 Last Admin: 09/22/24 21:03 Dose: 324 mg Documented By: WHITNEY Imaging Data Attestation: I personally reviewed and interpreted this imaging study as follows: My Impression: 1 view chest x-ray was obtained in the emergency department. My interpretation is no free air or definite infiltrate, final report pending. Discharge Plan Visit Data Chief Complaint: Chest Pain Stated Complaint: CHEST PAINS FOLLOWING IMPLANT ED Provider: Armand Davison Discharge Problem: Chest pain, Elevated troponin I level Patient Disposition: Being Evaluated by Hospitalist Condition: Fair Forms Stand Alone Forms: My [facility] [employer] Prescriptions Prescriptions: No Action carbamazepine 200 mg tablet 200 mg PO TID PRN (Reason: neuralgia) Qty: 270 1RF Patient Comments: ONLY TAKES QAM USUALLY lisinopril 40 mg tablet See Rx Instructions .ROUTE .COMPLEX Qty: 90 3RF Dose Instruction: TAKE 1 TABLET BY MOUTH EVERY DAY IN THE MORNING Rx Instructions: TAKE 1 TABLET BY MOUTH EVERY DAY IN THE MORNING tamsulosin 0.4 mg capsule 0.4 mg PO QAM Qty: 90 1RF amlodipine 5 mg tablet 5 mg PO QAM Qty: 90 1RF Rx Instructions: QAM Repatha SureClick 140 mg/mL pen injector 140 mg subcut .Every 2 weeks Qty: 6 4RF omega 0-fta-tss-fish oil 1,200 (144-216) mg capsule 2 cap PO QAM fluocinonide 0.05 % cream 1 applic topical BID PRN (Reason: Skin Irritation) Qty: 60 ascorbic acid (vitamin C) 500 mg tablet 500 mg PO QAM Qty: 90 Patient Comments: QAM cholecalciferol (vitamin D3) 2,000 unit capsule 2,000 units PO QAM Patient Comments: QAM vitamin B complex Tablet 1 tab PO QAM multivitamin Tablet 1 tab PO DAILY pitavastatin calcium 1 mg tablet 1 mg PO DAILY Qty: 90 3RF aspirin [Danielle Low Dose Aspirin] 81 mg Tablet,Delayed Release (Dr/Ec) 81 mg PO QAM Patient Comments: QAM sildenafil 50 mg tablet 50 mg PO UD PRN (Reason: sexual activity) Rx Instructions: administer 30 minutes to 4 hours before activity Referrals Referrals: PCP,NO [Physician] -
[2024-09-22 21:20] LABS: Hematocrit (blood only) 40.4 % (42.0-52.0); Hemoglobin 13.8 g/dl (14.0-18.0); Immature Granulocytes # (auto) 0.02 K/uL (0.01-0.20); Immature Granulocytes % (auto) 0.5 %; Mean Corpuscular Hemoglobin 30.1 pg (25.0-34.0); Mean Corpuscular Volume 88.2 fL (80.0-100.0); Platelet Count 149 K/uL (130-400); RDW Standard Deviation 40.7 fL (36.4-46.3); Red Blood Count 4.58 M/uL (4.70-6.10); White Blood Count 4.33 K/ul (4.8-10.8)
[2024-09-22 21:36] LABS: Alanine Aminotransferase 15.0 U/L (7-52); Albumin Globulin Ratio 1.4 (0.9-2); Alkaline Phosphatase 82.0 U/L (34-104); Anion Gap 6.0 (3-11); Bilirubin,Total 0.5 mg/dl (0.2-1.0); Blood Urea Nitrogen 28.0 mg/dl (6-23); Calcium 9.7 mg/dl (8.6-10.3); Carbon Dioxide 26.0 mmol/L (21-32); Chloride 106.0 mmol/L (98-107); Creatinine Clr Calc Pharmacy 38.9 ml/min; Globulin 3.1 gm/dl (2.5-4.0); Glucose 111.0 mg/dl (70-99(Fasting)); Lipase 89.0 U/L (11-82); Potassium 4.0 mmol/L (3.5-5.1); Sodium 138.0 mmol/L (136-145); Total Protein 7.3 gm/dl (6.0-8.3)
[2024-09-22] MEDS: ALUMINUM/MAGNESIUM SUSP 30 ML UDC PO STA (21:36)
--- NOTE | 2024-09-22 23:21 | XRay Report ---
Exam(s): XR CXR 1 VIEW EXAM: XR Chest, 1 View CLINICAL HISTORY: Reason for exam: Chest pain, nonspecific. TECHNIQUE: Frontal view of the chest. COMPARISON: Chest x-ray 10/11/2019. FINDINGS: Lungs: No consolidation. No overt edema. Pleural space: No pleural effusion. No pneumothorax. Heart: Unremarkable. No cardiomegaly. IMPRESSION: No acute cardiopulmonary abnormality. Electronically signed by: Huey Love MD 09/22/24 23:21 PM
--- NOTE | 2024-09-22 23:47 | History & Physical Report ---
Date of Service September 22, 2024 Assessment & Plan (1) Elevated troponin I level: (2) Aortic stenosis: (3) Status post transcatheter aortic valve replacement: (4) Stage 3 chronic kidney disease: (5) Hypertension: Plan The patient is a 79-year-old male with past medical history including aortic stenosis status post TAVR, statin myopathy, mild ascending aortic dilation, lumbar canal stenosis, BPH, hypertension, hyperlipidemia, stage III CKD, trigeminal neuralgia of left side of face, cerebral infarction, and peripheral neuropathy. He had developed an episode of chest discomfort and shortness of breath after having a large supper, and was leaning over washing his dog at home with his granddaughter. His symptoms did respond to some mild walking around., However, due to the significance of his symptoms and recent surgery, his son encouraged him to come to the emergency department for assessment for evaluation. In emergency department, troponin was initially elevated at 64.8 and follow-up is pending. His creatinine of 1.54 similar to previous at 1.59. He has been referred for evaluation for admission at this time. Elevated troponin/self-limited chest pain/status post TAVR on 09/16/2024/hypertension The patient will be admitted to telemetry for serial cardiac enzymes, serial EKG's, cardiac rhythm monitoring and a 2-D echocardiogram with Dopplers. Initial troponin 64.8 with follow-up pending Continue amlodipine 5 mg p.o. every morning Change lisinopril from 40 mg every morning to 20 mg p.o. twice daily Patient has a copy of vital signs from yesterday which showed systolic blood pressure 109 around 1:00 in the afternoon, that was associated with lightheadedn ess at the time. Patient's symptoms did develop after having a large meal of chicken, tater tots and pizza, and then was in a leaning forward position over the dog while washing the dog. His symptoms may be secondary more to GERD and hiatal hernia as opposed to cardiac. Continue aspirin Consult cardiology BPH with LUTS- Would change tamsulosin from 0.5 mg every morning to at bedtime CKD stage III- Creatinine 1.5 for admission, with base 1.59 Could consider a trial of a lower dose of lisinopril History of Present Illness Chief Complaint: The patient presents to the emergency department for evaluation of chest pain, which has resolved spontaneously prior to arrival to the emergency department. Patient reports that he had a supper consisting of chicken, tater tots and pizza. He then was in a stooped position leaning over while washing dog, and he developed some chest discomfort and mild shortness of breath. He reports he walked around for a bit, and symptoms did improve significantly. His son is encouraged him to come to the emergency department for assessment. Patient did undergo a TAVR on 09/16/2024 at . He has a follow-up echocardiogram scheduled on October 25, 2024. He follows with cardiology Dr. Guaman and [facility] locally. Primary Care Provider: Emy Irving DO The patient is a 79-year-old male with past medical history including aortic stenosis status post TAVR, statin myopathy, mild ascending aortic dilation, lumbar canal stenosis, BPH, hypertension, hyperlipidemia, stage III CKD, trigeminal neuralgia of left side of face, cerebral infarction, and peripheral neuropathy. He had developed an episode of chest discomfort and shortness of breath after having a large supper, and was leaning over washing his dog at home with his granddaughter. His symptoms did respond to some mild walking around., However, due to the significance of his symptoms and recent surgery, his son encouraged him to come to the emergency department for assessment for evaluation. In emergency department, troponin was initially elevated at 64.8 and follow-up is pending. His creatinine of 1.54 similar to previous at 1.59. He has been referred for evaluation for admission at this time. Allergies Allergy/AdvReac Type Severity Reaction Status Date / Time Qilacre-MKZ-IqA Reductase Allergy Intermediate Myalgia Verified 09/22/24 23:23 Inhibitor [Wgdvezt-Zlj-Axt Reductase Inhibitor] pravastatin AdvReac Severe Joint Pain Verified 09/22/24 23:23 rosuvastatin AdvReac Severe Joint Pain Verified 09/22/24 23:23 ezetimibe [From Zetia] AdvReac Intermediate Joint Pain Verified 09/22/24 23:23 OILS Allergy Mild rash Uncoded 09/22/24 23:23 Home Medications Medication Instructions Recorded Confirmed Type ascorbic acid (vitamin C) 500 mg 500 mg PO QAM #90 tabs 09/28/18 08/04/24 History tablet cholecalciferol (vitamin D3) 50 2,000 units PO QAM 09/28/18 08/04/24 History mcg (2,000 unit) capsule fluocinonide 0.05 % topical cream 1 applic topical BID PRN Skin 09/28/18 08/04/24 History Irritation #60 grams omega 5-boq-qau-fish oil 1,200 mg 2 cap PO QAM 09/28/18 08/04/24 History (144 mg-216 mg) capsule aspirin 81 mg tablet,delayed 81 mg PO QAM 10/12/19 08/04/24 History release (Danielle Low Dose Aspirin) vitamin B complex 1 tab PO QAM 01/10/20 08/04/24 History sildenafil 50 mg tablet 50 mg PO UD PRN sexual activity 11/26/21 08/04/24 History carbamazepine 200 mg tablet 200 mg PO TID PRN neuralgia #270 04/11/22 08/04/24 Rx tabs lisinopril 40 mg tablet See Rx Instructions .Route 10/20/23 08/04/24 Rx .COMPLEX #90 tabs tamsulosin 0.4 mg capsule 0.4 mg PO QAM #90 caps 01/26/24 08/04/24 Rx multivitamin 1 tab PO DAILY 02/04/24 08/04/24 History pitavastatin calcium 1 mg tablet 1 mg PO DAILY #90 tabs 05/17/24 08/04/24 Rx amlodipine 5 mg tablet 5 mg PO QAM #90 tabs 07/12/24 08/04/24 Rx evolocumab 140 mg/mL subcutaneous 140 mg subcut .Every 2 weeks #6 mL 08/16/24 Rx pen injector (Sera Card) Past Med/Surg History Problem List (Updated 09/22/24 @ 22:45 by Armand Davison DO) Status post transcatheter aortic valve replacement Elevated troponin I level (Acute) Chest pain (Acute) Statin myopathy Aortic stenosis Statin intolerance Mild ascending aorta dilation Renal cyst History of carpal tunnel release Aortic stenosis Erectile dysfunction Lumbar canal stenosis Vitamin D deficiency Left carpal tunnel syndrome COVID-19 (~10/2021) Heart murmur hx-going [facility] see [facility] [place], [place] BPH (benign prostatic hyperplasia) Leukopenia Chronic and stable-"thinks it's ok now" Hypertension Hyperlipidemia Stage 3 chronic kidney disease Follows with nephro- baseline creat 1.2-1.5 Trigeminal neuralgia of left side of face Stable- was following with neuro- follows only PRN now. Takes Carbamazepine as needed Cerebral infarction ~. Found incidentally on testing ([facility] [place] [facility]) Thyroid nodule no surgery Peripheral neuropathy Medical History History of COVID-19 beginning 10/2021, home test, not hosp; congestion, muscle aches>resolved. Lumbar stenosis Aortic stenosis 10/2021 last echo Osteoarthritis Mild aortic stenosis Surgical History S/P left inguinal hernia repair (10/14/19) Left Open Inguinal Hernia Repair(Left) with mesh; excision of cord lipoma Dr. Dunbar 10/14/2019 History of tonsillectomy History of carpal tunnel release right H/O colonoscopy S/P tympanoplasty left S/P rotator cuff repair left S/P cataract surgery bilateral Family History Father Colorectal cancer Mother Colorectal cancer Sister Myocardial infarction Other No family history of adverse response to anesthesia Denies family history of Ovarian cancer Prostate cancer Breast cancer Lung cancer Social History Smoking Status: Never smoker Second Hand Exposure: No; Do You Dip or Chew Tobacco: Yes (quit 15 years ago-advised); Hx Alcohol Use: Yes Alcohol type: beer Alcohol Intake Frequency: 4 or More x per/Week Alcohol Intake Frequency Comment: 12/ week Hx Substance Use: No Preferred Language: [place] Communication Ability: Effective Visual Impairment: No Limitations Hearing Ability: Hard of Hearing Body Artist Required: No Beliefs That Will Affect Care: None marital status: Current Living Situation: Spouse current occupational status: retired Feels Safe at Home: Yes Childhood Exposure to Second-Hand Smoke: No Diet Comment: regular caffeine: Yes during the past year weight has: remained stable Dental Care, Regularly: Yes Physical Activity Frequency: 5-6 Times per Week Physical Activity Frequency Comment: walk Seatbelt Use: always Sunscreen Use: Yes Assistive Devices: None Review of Systems Review of Systems: The patient denies palpitations, cough, lower extremity swelling, sore throat, fevers, chills, sweats, fatigue, nausea, vomiting, diarrhea , constipation, abdominal pain, pelvic pain, blood in urine or stool, dysuria, urinary frequency or urgency, lightheadedness, dizziness, headache, memory loss, loss of consciousness, rash, abnormal bruising or bleeding, imbalance, focal or generalized weakness, no change in chronic numbness or tingling in arms, generalized arthralgias or myalgias, back or neck pain, or night sweats. The review of systems is otherwise negative other than for that already noted above, and at least 10 systems have been reviewed. Physical Exam Physical Exam: The patient is awake, alert and oriented 3, well developed and well nourished, normocephalic and atraumatic, lying in bed and in no acute distress. HEENT--PERRL, EOMI, mucous membranes and oropharynx normal. Neck--supple. No JVD. No bruits. Thyroid normal, trachea midline, no adenopathy. Heart--normal S1 and S2. No murmurs, rubs or gallops. Lungs--clear bilaterally, no respiratory distress, no accessory muscle use. Abdomen--normal bowel sounds and soft. Nontender. Nondistended Extremities--No edema. Dermatologic--normal skin turgor, normal color, no abnormal lymph nodes, no rash. Neurologic--cranial nerves II through XII grossly intact. Rheumatologic--normal range of motion. Psychiatric--normal affect. Results & Data Results & Data Vital Signs (Past 12 Hours) Vital Signs Temp Pulse Resp BP Pulse Ox O2 Del Method 09/22/24 23:00 62 18 159/79 H 94 09/22/24 22:30 56 L 18 149/79 H 98 09/22/24 21:27 63 22 120/68 98 09/22/24 21:16 65 09/22/24 20:57 96 Room Air 09/22/24 20:52 36.5 C 74 16 145/81 H 94 Room Air Laboratory Results Laboratory Results WBC 4.33 K/ul (4.8-10.8) L 09/22/24 21:05 RBC 4.58 M/uL (4.70-6.10) L 09/22/24 21:05 Hgb 13.8 g/dl (14.0-18.0) L 09/22/24 21:05 Hct 40.4 % (42.0-52.0) L 09/22/24 21:05 MCV 88.2 fL (80.0-100.0) 09/22/24 21:05 MCH 30.1 pg (25.0-34.0) 09/22/24 21:05 MCHC 34.2 g/dL (32.0-36.0) 09/22/24 21:05 RDW Std Deviation 40.7 fL (36.4-46.3) 09/22/24:05 RDW Coeff of Constance 12.8 % (11.5-14.5) 09/22/24 21:05 Plt Count 149 K/uL (130-400) 09/22/24 21:05 MPV 9.7 fL (9.4-12.4) 09/22/24 21:05 Immature Gran % (Auto) 0.5 % 09/22/24:05 Neut % (Auto) 47.9 % 09/22/24:05 Lymph % (Auto) 37.6 % 09/22/24 21:05 Larue % (Auto) 9.0 % 09/22/24 21:05 Eos % (Auto) 4.8 % 09/22/24 21:05 Baso % (Auto) 0.2 % 09/22/24:05 Neut # (Auto) 2.07 K/uL (1.40-6.50) 09/22/24:05 Lymph # (Auto) 1.63 K/uL (1.20-3.40) 09/22/24:05 Larue # (Auto) 0.39 K/uL (0.11-0.59) 09/22/24 21:05 Eos # (Auto) 0.21 K/uL (0.00-0.50) 09/22/24 21:05 Baso # (Auto) 0.01 K/uL (0.00-0.20) 09/22/24:05 Immature Gran # (Auto) 0.02 K/uL (0.01-0.20) 09/22/24 21:05 Sodium 138 mmol/L (136-145) 09/22/24 21:05 Potassium 4.0 mmol/L (3.5-5.1) 09/22/24 21:05 Chloride 106 mmol/L (98-107) 09/22/24 21:05 Carbon Dioxide 26 mmol/L (21-32) 09/22/24 21:05 Anion Gap 6 (3-11) 09/22/24 21:05 BUN 28 mg/dl (6-23) H 09/22/24 21:05 Creatinine 1.54 mg/dl (0.6-1.4) H 09/22/24 21:05 Est Cr Clr Drug Dosing 38.9 ml/min 09/22/24 21:05 eGFR 45.60 09/22/24 21:05 BUN/Creatinine Ratio 18.2 (10-20) 09/22/24 21:05 Glucose 111 mg/dl (70-99(Fasting)) H 09/22/24 21:05 Calcium 9.7 mg/dl (8.6-10.3) 09/22/24 21:05 Total Bilirubin 0.5 mg/dl (0.2-1.0) 09/22/24 21:05 AST 23 U/L (13-39) 09/22/24 21:05 ALT 15 U/L (7-52) 09/22/24 21:05 Alkaline Phosphatase 82 U/L (34-104) 09/22/24 21:05 Troponin I High Sens 64.8 pg/ml (0-20) H* 09/22/24 21:05 Total Protein 7.3 gm/dl (6.0-8.3) 09/22/24 21:05 Albumin 4.2 gm/dl (3.4-5.0) 09/22/24 21:05 Globulin 3.1 gm/dl (2.5-4.0) 09/22/24 21:05 Albumin/Globulin Ratio 1.4 (0.9-2) 09/22/24 21:05 Lipase 89 U/L (11-82) H 09/22/24 21:05 Impressions Chest X-Ray 09/22/24 20:57 Exam(s): XR CXR 1 VIEW EXAM: XR Chest, 1 View CLINICAL HISTORY: Reason for exam: Chest pain, nonspecific. TECHNIQUE: Frontal view of the chest. COMPARISON: Chest x-ray 10/11/2019. FINDINGS: Lungs: No consolidation. No overt edema. Pleural space: No pleural effusion. No pneumothorax. Heart: Unremarkable. No cardiomegaly. IMPRESSION: No acute cardiopulmonary abnormality. Electronically signed by: Huey Love MD 09/22/24 23:21 PM Code Status & VTE Plan Code Status Full code VTE Prophylaxis Plan VTE Prophylaxis will be ordered: Yes PG Care Time/CCT Total # of Minutes Spent Total Time Spent with Patient: Total time spent is greater than 50% in coordination of care (as documented) at patient's floor/unit and/or counseling patient: Coding Level of Care Code 53695 INT INP/OBS CARE 375MIN Diagnoses Elevated troponin I level R79.89 Aortic stenosis I35.0 Status post transcatheter aortic valve replacement Z95.2 Stage 3 chronic kidney disease N18.3 Hypertension, unspecified type I10 Hypertension type: unspecified (5) Hypertension Hypertension type: unspecified Qualified Code(s): I10 - Essential (primary) hypertension
[2024-09-23] MEDS ORDERED: ONDANSETRON INJ 2 MG/ML 2 ML VIAL IV PRN (01:07)
[2024-09-23] MEDS ORDERED: ACETAMINOPHEN 325 MG TAB PO PRN (01:07)
[2024-09-23 06:22] LABS: Hematocrit (blood only) 39.2 % (42.0-52.0); Hemoglobin 13.2 g/dl (14.0-18.0); Immature Granulocytes # (auto) 0.01 K/uL (0.01-0.20); Immature Granulocytes % (auto) 0.2 %; Mean Corpuscular Hemoglobin 30.3 pg (25.0-34.0); Mean Corpuscular Volume 89.9 fL (80.0-100.0); Platelet Count 140 K/uL (130-400); RDW Standard Deviation 42.1 fL (36.4-46.3); Red Blood Count 4.36 M/uL (4.70-6.10); White Blood Count 4.22 K/ul (4.8-10.8)
[2024-09-23 06:48] LABS: Anion Gap 5.0 (3-11); Blood Urea Nitrogen 26.0 mg/dl (6-23); Calcium 9.1 mg/dl (8.6-10.3); Carbon Dioxide 28.0 mmol/L (21-32); Chloride 108.0 mmol/L (98-107); Creatinine Clr Calc Pharmacy 42.2 ml/min; Glucose 93.0 mg/dl (70-99(Fasting)); Magnesium 2.2 mg/dl (1.7-2.4); Potassium 4.4 mmol/L (3.5-5.1); Sodium 141.0 mmol/L (136-145)
[2024-09-23 07:41] VITALS: TEMP 97.3
[2024-09-23] MEDS: VITAMIN B COMPLEX TAB PO SCH (08:24)
[2024-09-23] MEDS: ASPIRIN 81 MG ECTAB PO SCH (08:24)
[2024-09-23] MEDS: ASCORBIC ACID 500 MG TAB PO SCH (08:24)
[2024-09-23] MEDS: MULTIVITAMIN TAB PO SCH (08:24)
[2024-09-23] MEDS: CHOLECALCIFEROL 25 MCG (1000 UNITS) TAB PO SCH (08:24)
--- NOTE | 2024-09-23 10:24 | Cardiology Consultation ---
Date of Consultation September 23, 2024 Assessment & Plan (1) Chest pain: (2) Elevated troponin I level: (3) Status post transcatheter aortic valve replacement: (4) Hypertension: (5) Hyperlipidemia: Plan Mr. Garcia is a 79-year-old male with a history of Non-Obstructive CAD, Hy pertension, Dyslipidemia, BPH, Stage IIIA CKD, Thyroid Nodule, Cerebral Infarction, SARS CoV 2 Infection, Mildly Dilated Ascending Aorta, and Severe Aortic Stenosis s/p TAVR 09/16/24 who was admitted to [facility] on 09/22/24 with Left Sided Lower Chest Pain/Pressure and an Elevated High Sensitivity Troponin I Level. Patient just had his TAVR procedure completed 1 week ago and he felt great afterwards. His exertional dyspnea and exertional tolerance improved dramatically. He continued to feel very well thereafter, he has been walking around his neighborhood and feels like he can walk for miles on end. However, yesterday after having a large meal of chicken, tater tots and pizza he and his granddaughter were trying to bathe the dog but the dog was not standing still. Therefore the patient bent over and held the dog in place. After they completed their task, he stood up and noticed a dull pain in his anterior left lower chest. He has had this discomfort off and on since then, it is unrelated to exertion, it does not radiate, and he denies any associated symptoms. He specifically denies any associated nausea, vomiting, diaphoresis, or dyspnea. Patient was placed on a corporate safety coordinator that showed sinus rhythm to sinus bradycardia. In the ER he received an antacid which seemed to make his symptoms improve/resolve. EKGs have shown normal sinus rhythm, normal EKG and this morning's EKG showed sinus bradycardia, otherwise normal tracing. His lawn care technician shows sinus bradycardia to normal sinus rhythm with occasional PVCs. One 7 beat run of nonsustained V-tach. His high sensitivity troponin I was 64.8 pg/mL, 65.0 pg/mL, and trended down to 57.0 pg/mL. Hemoglobin 13.2 g/dL, hematocrit 39.2%, platelet count 140,000. Sodium is 141 mmol/L, potassium 4.4 mmol/L, BUN 26 mg/dL, and creatinine 1.42 mg/dL. Echocardiogram has been ordered. Patient's chest pain is atypical and most likely related to some indigestion or reflux. I strongly suspect that his elevated troponin I level are related to his recent TAVR procedure. Provided he has normal wall motion on his echocardiogram and his TAVR is functioning appropriately, he may be discharged home on his current medical regimen. Thank you for asking us to see this patient in consultation. History of Present Illness Reason for Consultation: -- Elevated high sensitivity Troponin I level. Requesting Physician: Abel Phoenix MD, PhD Attending Physician: Armand Guaman MD. History of Present Illness Mr. Garcia is a 79-year-old male with a history of Non-Obstructive CAD, Hypertension, Dyslipidemia, BPH, Stage IIIA CKD, Thyroid Nodule, Cerebral Infarction, SARS CoV 2 Infection, Mildly Dilated Ascending Aorta, and Severe Aortic Stenosis s/p TAVR 09/16/24 who was admitted to [facility] on 09/22/24 with Left Sided Lower Chest Pain/Pressure and an Elevated High Sensitivity Troponin I Level. Patient just had his TAVR procedure completed 1 week ago and he felt great afterwards. His exertional dyspnea and exertional tolerance improved dramatically. He continued to feel very well thereafter, he has been walking around his neighborhood and feels like he can walk for miles on end. However, yesterday after having a large meal of chicken, tater tots and pizza he and his granddaughter were trying to bathe the dog but the dog was not standing still. Therefore the patient bent over and held the dog in place. After they completed their task, he stood up and noticed a dull pain in his anterior left lower chest. He has had this discomfort off and on since then, it is unrelated to exertion, it does not radiate, and he denies any associated symptoms. He specifically denies any associated nausea, vomiting, diaphoresis, or dyspnea. Patient was placed on a corporate safety coordinator that showed sinus rhythm to sinus bradycardia. In the ER he received an antacid which seemed to make his symptoms improve/resolve. EKGs have shown normal sinus rhythm, normal EKG and this morning's EKG showed si nus bradycardia, otherwise normal tracing. His lawn care technician shows sinus bradycardia to normal sinus rhythm with occasional PVCs. One 7 beat run of nonsustained V-tach. His high sensitivity troponin I was 64.8 pg/mL, 65.0 pg/mL, and trended down to 57.0 pg/mL. Hemoglobin 13.2 g/dL, hematocrit 39.2%, platelet count 140,000. Sodium is 141 mmol/L, potassium 4.4 mmol/L, BUN 26 mg/dL, and creatinine 1.42 mg/dL. He is compliant with his medications and has not had any adverse side effects. CARDIAC CATHETERIZATION 07/07/24: LDNL-cztcy-wdlutqm vessel trifurcating into LAD, ramus, and circumflex. No more than mild luminal irregularities. LAD-this is large caliber and transapical. Proximal to mid diffuse stenosis appearing up to 50% to 60% narrowed in some places. After the D1 there is a second lesion of 40% to 50% stenosis. The distal LAD has no disease. LAD provides a large branching first diagonal which has no angiographically significant disease. Ramus-this is large caliber and branching without significant disease. PQx-qktdv-wbxekjv and nondominant. Travels in the AV groove giving 2 small obtuse marginal branches and terminating distally. There is no more than mild luminal irregularities in the circumflex and its branches. RCA-this is large caliber and dominant. Proximally diffuse less than 30% stenosis. Mid and distal vessel have no angiographically evident disease. The RCA bifurcates into a large PDA and a large multi branching posterolateral. These branch vessels have no angiographically evident disease. Summary: 1. Unsuccessful attempt at right heart catheterization using the right brachial venous approach. Of note, limited venography demonstrated ectatic and irregular venous system also with tortuosity. 2. Mild to moderate nonocclusive coronary disease as described. 3. Patient should be placed on guideline directed medical therapy for secondary prevention of coronary disease including low-dose aspirin, high intensity statin therapy, EDGARD inhibitor, and beta-jo as tolerated. 4. Recommend patient complete workup for aortic valve replacement ECHOCARDIOGRAM 11/24/23: -- Normal LV size, wall motion, and systolic function. -- LVEF 55% to 60%. -- Moderate to severe . -- Mild concentric LVH. -- Mildly dilated ascending aorta at 4.0 cm -- Compared to Echo dated 11/21/22; No significant change. ECHOCARDIOGRAM 11/21/22: -- Normal LV size, wall motion, and systolic function. -- Mild concentric LVH. -- Moderate-to severe . -- Mildly dilated ascending aorta (4.0 cm in diameter). -- No change compared to 10/04/2021 study. ECHOCARDIOGRAM 10/04/21: -- Normal LV size, wall motion, and systolic function. -- Mild concentric LVH. -- LVEF 55% to 60%. -- Moderate to severe aortic stenosis. -- No significant change compared with 12/18/2016 Echocardiogram. Negative Stress Echocardiogram 12/18/2016. SOCIAL HISTORY: -- Patient is and lives with his . -- He leads a very physically active lifestyle. -- He walks 5 to 6 times per week. -- Non-smoker. FAMILY HISTORY: -- Father had colorectal cancer. -- Mother had colorectal cancer. -- One sister who sustained an KS. Allergies Allergy/AdvReac Type Severity Reaction Status Date / Time Dcrcveg-NKR-HaM Reductase Allergy Intermediate Myalgia Verified 09/22/24 23:23 Inhibitor [Zfixepw-Euk-Crq Reductase Inhibitor] pravastatin AdvReac Severe Joint Pain Verified 09/22/24 23:23 rosuvastatin AdvReac Severe Joint Pain Verified 09/22/24 23:23 ezetimibe [From Zetia] AdvReac Intermediate Joint Pain Verified 09/22/24 23:23 OILS Allergy Mild rash Uncoded 09/22/24 23:23 Home Medications Medication Instructions Recorded Confirmed Type ascorbic acid (vitamin C) 500 mg 500 mg PO QAM #90 tabs 09/28/18 09/23/24 History tablet cholecalciferol (vitamin D3) 50 2,000 units PO QAM 09/28/18 09/23/24 History mcg (2,000 unit) capsule omega 9-bew-zwk-fish oil 1,200 mg 2 cap PO QAM 09/28/18 09/23/24 History (144 mg-216 mg) capsule aspirin 81 mg tablet,delayed 81 mg PO QAM 10/12/19 09/23/24 History release (Danielle Low Dose Aspirin) vitamin B complex 1 tab PO QAM 01/10/20 09/23/24 History sildenafil 50 mg tablet 50 mg PO UD PRN sexual activity 11/26/21 09/23/24 History carbamazepine 200 mg tablet 200 mg PO TID PRN neuralgia #270 04/11/22 09/23/24 Rx tabs tamsulosin 0.4 mg capsule 0.4 mg PO QAM #90 caps 01/26/24 09/23/24 Rx multivitamin 1 tab PO DAILY 02/04/24 09/23/24 History pitavastatin calcium 1 mg tablet 1 mg PO DAILY #90 tabs 05/17/24 09/23/24 Rx amlodipine 5 mg tablet 5 mg PO QAM #90 tabs 07/12/24 09/23/24 Rx evolocumab 140 mg/mL subcutaneous 140 mg subcut .Every 2 weeks #6 mL 08/16/24 09/23/24 Rx pen injector (Sera Card) lisinopril 40 mg tablet 40 mg PO QAM 09/23/24 09/23/24 History Patient History Medical History History of COVID-19 beginning 10/2021, home test, not hosp; congestion, muscle aches>resolved. Lumbar stenosis Aortic stenosis 10/2021 last echo Osteoarthritis Mild aortic stenosis Surgical History S/P left inguinal hernia repair (10/14/19) Left Open Inguinal Hernia Repair(Left) with mesh; excision of cord lipoma Dr. Dunbar 10/14/2019 History of tonsillectomy History of carpal tunnel release right H/O colonoscopy S/P tympanoplasty left S/P rotator cuff repair left S/P cataract surgery bilateral Family History Father Colorectal cancer Mother Colorectal cancer Sister Myocardial infarction Other No family history of adverse response to anesthesia Denies family history of Ovarian cancer Prostate cancer Breast cancer Lung cancer Social History Smoking Status: Never smoker Second Hand Exposure: No; Do You Dip or Chew Tobacco: Yes (quit 15 years ago-advised); Hx Alcohol Use: Yes Alcohol type: beer Alcohol Intake Frequency: 4 or More x per/Week Alcohol Intake Frequency Comment: 12/ week Hx Substance Use: No Preferred Language: British Communication Ability: Effective Visual Impairment: No Limitations Hearing Ability: Hard of Hearing Story Writer Required: No Beliefs That Will Affect Care: None marital status: Current Living Situation: Spouse Current Living Situation Comment: Spouse has dementia - son lives next door current occupational status: retired Feels Safe at Home: Yes Childhood Exposure to Second-Hand Smoke: No Diet Comment: regular caffeine: Yes during the past year weight has: remained stable Dental Care, Regularly: Yes Physical Activity Frequency: 5-6 Times per Week Physical Activity Frequency Comment: walk Seatbelt Use: always Sunscreen Use: Yes Assistive Devices: Denture - Upper, Denture - Lower and Glasses Review of Systems Review of Systems: -- As per HPI. Physical Exam Physical Exam: Blood pressure is 130/70. GENERAL: Patient in no acute distress. HEENT: Head is atraumatic, normocephalic. EOM's intact. Facies symmetric. No perioral cyanosis. NECK: No JVD. JVP is not elevated. Carotid upstrokes are + 2 bilaterally without bruits. CHEST/LUNGS: Clear to auscultation throughout all lung vergara. No wheezes, rales, or crackles. CVS: S1 and S2 are regular with a grade 1/6 basal systolic murmur. No diastolic murmurs. No gallops or rubs. PMI is nondisplaced. No lifts, heaves, or thrills. No abdominal aortic or renal bruits. ABDOMINAL EXAM: Bowel sounds are present. EXTREMITIES: No clubbing or cyanosis. No edema. NEUROLOGIC EXAM: Patient is awake, alert, and oriented. Pleasant and cooperative. Answers questions appropriately. Speech is clear. Results & Data Vital Signs (Past 12 Hours) Vital Signs Temp Pulse Pulse Resp BP BP Pulse Ox 09/23/24 08:40 09/23/24 07:43 59 L 09/23/24 07:38 36.3 C L 60 18 130/72 97 09/23/24 03:45 36.6 C 63 16 114/67 98 09/23/24 01:08 36.4 C L 66 16 160/72 H 96 09/23/24 00:30 59 L 12 145/77 H 98 09/23/24 00:00 57 L 16 143/84 H 97 09/22/24 23:00 62 18 159/79 H 94 09/22/24 22:30 56 L 18 149/79 H 98 O2 Del Method 09/23/24 08:40 Room Air 09/23/24 07:43 09/23/24 07:38 Room Air 09/23/24 03:45 Room Air 09/23/24 01:08 Room Air 09/23/24 00:30 09/23/24 00:00 09/22/24 23:00 09/22/24 22:30 Laboratory Results Laboratory Results - last 24 hr 09/22/24 09/22/24 09/23/24 21:05 22:58 05:18 WBC 4.33 L 4.22 L RBC 4.58 L 4.36 L Hgb 13.8 L 13.2 L Hct 40.4 L 39.2 L MCV 88.2 89.9 MCH 30.1 30.3 MCHC 34.2 33.7 RDW Std Deviation 40.7 42.1 RDW Coeff of Constance 12.8 12.7 Plt Count 149 140 MPV 9.7 10.0 Immature Gran % (Auto) 0.5 0.2 Neut % (Auto) 47.9 44.1 Lymph % (Auto) 37.6 40.3 Kidder % (Auto) 9.0 9.2 Eos % (Auto) 4.8 5.7 Baso % (Auto) 0.2 0.5 Neut # (Auto) 2.07 1.86 Lymph # (Auto) 1.63 1.70 Kidder # (Auto) 0.39 0.39 Eos # (Auto) 0.21 0.24 Baso # (Auto) 0.01 0.02 Immature Gran # (Auto) 0.02 0.01 Sodium 138 141 Potassium 4.0 4.4 Chloride 106 108 H Carbon Dioxide 26 28 Anion Gap 6 5 BUN 28 H 26 H Creatinine 1.54 H 1.42 H Est Cr Clr Drug Dosing 38.9 42.2 eGFR 45.60 50.26 BUN/Creatinine Ratio 18.2 18.3 Glucose 111 H 93 Calcium 9.7 9.1 Phosphorus 3.0 Magnesium 2.2 Total Bilirubin 0.5 AST 23 ALT 15 Alkaline Phosphatase 82 Troponin I High Sens 64.8 H* 65.0 H* 57.0 H* Total Protein 7.3 Albumin 4.2 3.9 Globulin 3.1 Albumin/Globulin Ratio 1.4 Lipase 89 H Diagnostic Findings CXR 09/22/24: Lungs: No consolidation. No overt edema. Pleural space: No pleural effusion. No pneumothorax. Heart: Unremarkable. No cardiomegaly. IMPRESSION: No acute cardiopulmonary abnormality. Medications Administered Medication List Amlodipine Besylate (Amlodipine Besylate 5 Mg Tab) [facility] [place] Stop: 10/23/24 08:59 Last Admin: 09/23/24 08:24 Dose: 5 mg Documented By: FELISA Ascorbic Acid (Ascorbic Acid 500 Mg Tab) 500 mg PO QAM [facility] Stop: 10/23/24 08:59 Last Admin: 09/23/24 08:24 Dose: 500 mg Documented By: FELISA Aspirin (Aspirin 81 Mg Ectab) 81 mg PO QAM [facility] Stop: 10/23/24 08:59 Last Admin: 09/23/24 08:24 Dose: 81 mg Documented By: FELISA Lisinopril (Lisinopril 20 Mg Tab) 20 mg PO BID [facility] Stop: 10/23/24 08:59 Last Admin: 09/23/24 08:24 Dose: 20 mg Documented By: FELISA Miscellaneous (Pitavastatin Calcium 1 Mg - Order Awaiting Action) 1 each N/A QS [facility] Stop: 10/23/24 07:59 Last Admin: 09/23/24 08:22 Dose: Not Given Documented By: FELISA Multivitamins (Multivitamin Tab) 1 tab PO DAILY [facility] Stop: 10/23/24 08:59 Last Admin: 09/23/24 08:24 Dose: 1 tab Documented By: FELISA Vitamin B Complex (Vitamin B Complex Tab) 1 tab PO QAM [facility] Stop: 10/23/24 08:59 Last Admin: 09/23/24 08:24 Dose: 1 tab Documented By: FELISA Vitamin D (Cholecalciferol 25 Mcg (1000 Units) Tab) 50 [facility]cg [facility] [place] Stop: 10/23/24 08:59 Last Admin: 09/23/24 08:24 Dose: 50 mcg Documented By: FELISA Discontinued Medications Al Hydrox/Mg Hydrox/Simethicone (Aluminum/Magnesium Susp 30 Ml Udc) 30 ml PO NOW STA Stop: 09/22/24 21:15 Last Admin: 09/22/24 21:36 Dose: 30 ml Documented By: WHITNEY Aspirin (Aspirin Chew 324 Mg) 324 mg PO NOW STA Stop: 09/22/24 20:58 Last Admin: 09/22/24 21:03 Dose: 324 mg Documented By: WHITNEY PG Care Time/CCT Total # of Minutes Spent Total Time Spent with Patient: Total time spent is greater than 50% in coordination of care (as documented) at patient's floor/unit and/or counseling patient:45 C[place] [address] INT INP/OBS CARE 2/MIN Patient Type Established History Comprehensive Exam Comprehensive Medical Decision Making Moderate Complexity Diagnoses Chest pain, unspecified type R07.9 Chest pain type: unspecified Elevated troponin I level R79.89 Status post transcatheter aortic valve replacement Z95.2 Hypertension, unspecified type I10 Hypertension type: unspecified Hyperlipidemia, unspecified hyperlipidemia type E78.5 Hyperlipidemia type: unspecified Time Spent (min) 62 (1) Chest pain Chest pain type: unspecified Qualified Code(s): R07.9 - Chest pain, unspecified (4) Hypertension Hypertension type: unspecified Qualified Code(s): I10 - Essential (primary) hypertension (5) Hyperlipidemia Hyperlipidemia type: unspecified Qualified Code(s): E78.5 - Hyperlipidemia, unspecified
[2024-09-23 11:34] VITALS: BP 149/81; RESP 16; O2SAT 98
--- NOTE | 2024-09-23 13:44 | XCELERA ---
[id number]
--- NOTE | 2024-09-23 14:32 | Electrocardiogram Report ---
Test Reason : Blood Pressure : */* mmHG Vent. Rate : 74 BPM Atrial Rate : 74 BPM P-R Int : 160 ms QRS Dur : 96 ms QT Int : 378 ms P-R-T Axes : 64 26 66 degrees QTcB Int : 419 ms Normal sinus rhythm Normal ECG When compared with ECG of 11-Oct-2019 07:24, No significant change was found Confirmed by Armand Guaman ([id number]) on 09/23/2024 2:31:58 PM Referred By: Dar Quezada Confirmed By: Armand Guaman
[2024-09-23 14:38] VITALS: PULSE 65
--- NOTE | 2024-09-23 14:45 | Discharge Summary ---
Discharge Summary Date of Service September 23, 2024 Principal Dx & Hospital Course #1 = Principal Diagnosis (1) Elevated troponin I level: (2) Aortic stenosis: (3) Status post transcatheter aortic valve replacement: (4) Stage 3 chronic kidney disease: (5) Hypertension: Plan 79 years old male with PMH of FULL CODE @ home, trigeminal neuralgia of left face on carbamazepine 200mg PO tid prn neuralgia, BPH on flomax 0.4mg PO qam, hyperlipidemia on pitavastatin 1mg PO daily, evolocumab 140mg SQ q2 weeks, erectile dysfunction on sildenafil 50mg PO daily prn erectile dysfunction, CKD stage III with baseline creatinine range, 1.53 - 1.67 mg/dL (09/14/2019 - 07/09/2024), HTN on amlodipine 5mg PO qam and lisinopril 40mg PO qam, and severe aortic stenosis with ADORE 0.5cm2, PV 3.85, MG 35, DI 0.18, trace AI (as noted on 07/29/2024, 7:56am [facility], CARDS Dr. Jas De Souza), s/p TAVR (09/16/2024, [facility] CARDS Dr. Armand Guaman), who reported acute onset of chest discomfort and shortness of breath after having a large supper of chicken, pizza, and tater tots on 09/22/2024, and was leaning over washing his dog at home with his granddaughter. Patient's symptoms did respond to some mild walking around. However, due to the significance of his symptoms and recent TAVR (09/16/2024, [facility] CARDS Dr. Armand Guaman), patient's son encouraged him to come to [facility] ER on 09/22/2024 for assessment for evaluation. In [facility] ER, patient was afebrile @ 36.5 degrees Celsius, HR 74, RR 16, O2 sat 94% on room air, and BP 145/81 (09/22/2024, 8:52pm). Exam was noted for a clear and non-tender chest. Labs in [facility] ER were noted for: Troponin-I #1 64.8 pg/mL (09/22/2024, 9:05pm). Troponin-I #2 65.0 pg/mL (09/22/2024, 10:58pm). Troponin-I #3 57.0 pg/mL (09/23/2024, 5:18am). EKG #1 (09/22/2024, 8:57pm): NSR @ 74, WY 160, QTC 419, no acute ST depressions/elevations, TWI, or q waves (by my review). EKG #2 (09/23/2024, 5:48am): NSR @ 53, WY 182, QTC 403, no acute ST depressio ns/elevations, TWI, or q waves (by my review). Patient was subsequently placed in OBSERVATION on the hospitalist service @ [facility] on 09/22/2024 with the following diagnosis: 1. Acute type II NSTEMI with nominal troponin elevation due to demand ischemia, not acute myocardial ischemia. Patient was subsequently monitored on telemetry overnight with no complaints from patient at all. Patient subsequently underwent TTE (09/23/2024, 9:58am, CARDS Dr. Armand Guaman), which revealed: a. LVEF 55-60%. b. No LV wall motion abnormality. c. Moderate concentric LVH. d. Prosthetic AV well-seated with gradient normal for this prosthetic aortic valve. Trace aortic insufficiency. e. RV normal size and normal systolic function. f. LA mildly dilated. RA normal size. No ADS, but resolution does not allow assessment for patent foramen ovale. g. PV not well seen, bu Doppler exam is normal without significant W[place] or PS. h. Mild MR. No MS. i. No TR. No TS. j. Aortic root normal size. Normal IVC size and collapsibility with sniff indicates normal RAP 3 mm Hg. k. No pericardial effusion. Patient was subsequently discharged back to his home on 09/23/2024 and will follow up with his PCP Dr. Emy Irving within 5-7 days of hospital discharge. Admission HPI Per Admitting Provider The patient is a 79-year-old male with past medical history including aortic stenosis status post TAVR, statin myopathy, mild ascending aortic dilation, lumbar canal stenosis, BPH, hypertension, hyperlipidemia, stage III CKD, trigeminal neuralgia of left side of face, cerebral infarction, and peripheral neuropathy. He had developed an episode of chest discomfort and shortness of breath after having a large supper, and was leaning over washing his dog at home with his granddaughter. His symptoms did respond to some mild walking around., However, due to the significance of his symptoms and recent surgery, his son encouraged him to come to the emergency department for assessment for evaluation. In emergency department, troponin was initially elevated at 64.8 and follow-up is pending. His creatinine of 1.54 similar to previous at 1.59. He has been referred for evaluation for admission at this time. Discharge Exam Constitutional General: Comfortable, coherent, and cooperative. Not confused, obtunded, or lethargic. Patient speaks with regular jennifer, and in complete, fluent, and articulate 7-9 word sentences without pause, interruption, cough, or wheeze with O2 sat 98% on room air (09/23/2024, 2:37pm). HEENT: Normocephalic, atraumatic. No nystagmus, gaze paresis, anisocoria, miosis, mydriasis, hyphema, scleral injection, conjunctivitis, or pterygium. No otorrhea or rhinorrhea. No pharyngeal erythema, edema, or discharge. Neck: Supple, no stridor, bruit, goiter, or hepato-jugular reflux. Jugular venous pressure is estimated to be 3 cm above the sternal angle of Juan, which in turn, is 5 cm above the level of the right atrium; with jugular venous pressure estimated to be 8 cm, then, there is no jugular venous distention on 09/23/2024. Lymphatics: No cervical (anterior/posterior), supraclavicular, infracla vicular, axillary, epitrochlear, or inguinal adenopathy. Chest: Symmetric rise and fall with respirations. Non-tender to palpation. Lungs: Clear to auscultation and percussion. Heart: Regular rate and rhythm. S1 and S2 noted. No S3 or S4 summation gallop. No tripartite friction rub. Grade II/ early systolic murmur @ LLSB without radiation to the carotids, axilla, or back, and which remains invariant in regards to the respiratory cycle. Abdomen: Soft, non-tender, non-distended. No rebound, guarding, Barrera's sign, or organomegaly. Bowel sounds auscultated in all 4 quadrants. Extremities: No clubbing, cyanosis, or edema. Skin: No decubitus ulcer or enanthem or exanthem. Neuro: Awake and oriented in regards to person, place, time, and situation. DTR+. 5/5 motor strength in all 4 extremities, both proximally and distally. No myoclonus or tics or tremors. Genito-urinary: No urethral discharge. No powell catheter. Psychiatry: No depression or anxiety. Smiles appropriately. Discharge Plan Discharge Items Patient Disposition: Home - Self-Care Reason For Visit: CHEST PAIN,ELEVATED TROP,TAVR 09/16 Discharge Diagnosis: 1. Chest pain, s/p rule out acute myocardial infarction, probably due to GERD. 2. s/p TAVR (09/16/2024, [facility] CARDS Dr. Armand Guaman), with "prosthetic valve well-seated and gradient normal for this prosthetic valve" (as noted on 09/23/2024, 9:58am TTE, CARDS Dr. Armand Guaman). Condition on Discharge: Fair Activity: Resume your previous activity Lifting: Gradually increase as tolerated Bathing: No limitations Sexual Activity: When tolerated Exercise/Sports: Gradually increase as tolerated Driving/Machine Use: No limitations Weightbearing: Full weightbearing Non-emergency contact: Primary Care Provider Call non-emergency contact if: you have any medication questions Follow-up/Referrals: Emy Irving, [Primary Care Provider] - Diet: Heart Healthy Addtl Attending Provider Instructions: See your PCP Dr. Emy Irving within 5-7 days of hospital discharge. Pending Studies at Discharge: No Stand-Alone Forms: My [facility] [place], Smoking Cessation Medications and DC Order Prescriptions: New lisinopril 20 mg Tablet 20 mg PO BID Qty: 60 0RF Continued carbamazepine 200 mg tablet 200 mg PO TID PRN (Reason: neuralgia) Qty: 270 1RF Patient Comments: ONLY TAKES QAM USUALLY tamsulosin 0.4 mg capsule 0.4 mg PO QAM Qty: 90 1RF amlodipine 5 mg tablet 5 mg PO QAM Qty: 90 1RF Repatha SureClick 140 mg/mL pen injector 140 mg subcut .Every 2 weeks Qty: 6 4RF omega [id number]-fish oil 1,200 (144-216) mg capsule 2 cap PO QAM ascorbic acid (vitamin C) 500 mg tablet 500 mg PO QAM Qty: 90 Patient Comments: QAM cholecalciferol (vitamin D3) 2,000 unit capsule 2,000 units PO QAM vitamin B complex Tablet 1 tab PO QAM multivitamin Tablet 1 tab PO DAILY pitavastatin calcium 1 mg tablet 1 mg PO DAILY Qty: 90 3RF aspirin [Danielle Low Dose Aspirin] 81 mg Tablet,Delayed Release (Dr/Ec) 81 mg PO QAM sildenafil 50 mg tablet 50 mg PO UD PRN (Reason: sexual activity) Rx Instructions: administer 30 minutes to 4 hours before activity lisinopril 40 mg tablet 40 mg PO QAM Discharge Orders: Discharge Order (Routine); Ordered 09/23/24 Ordered By: Abel Phoenix Admission Data Admit Date/Time: 09/22/24 23:34 Attending Provider: Abel Phoenix Admit Provider: Lars Ureña Primary Care Provider: Emy Irving Other Providers: Lars Ureña; Armand Guaman Hospital Stay Data Consultations 09/22/24 22:45 ED Decision to Admit Stat 09/23/24 01:07 Consult Cardiology Routine Pending Results Patient Have Any Pending Studies at Discharge: No Discharge Instructions Given to Patient (Per Discharging Provider) See your PCP Dr. Emy Irving within 5-7 days of hospital discharge. Total Time Total Time Spent Total Time Spent (In Minutes): 35 minutes. Of this time period, 19 minutes were spent in coordinating patient's discharge. Coding Level of Care Code 46592 INP/OBS DISCH >30 MIN Diagnoses Elevated troponin I level R79.89 Aortic stenosis I35.0 Status post transcatheter aortic valve replacement Z95.2 Stage 3 chronic kidney disease N18.3 Hypertension, unspecified type I10 Hypertension type: unspecified
--- NOTE | 2024-09-23 14:49 | Electrocardiogram Report ---
Test Reason : Blood Pressure : */* mmHG Vent. Rate : 53 BPM Atrial Rate : 53 BPM P-R Int : 182 ms QRS Dur : 102 ms QT Int : 430 ms P-R-T Axes : 65 40 50 degrees QTcB Int : 403 ms Sinus bradycardia Otherwise normal ECG When compared with ECG of 22-Sep-2024 20:57, (unconfirmed) No significant change was found Confirmed by Armand Guaman ([id number]) on 09/23/2024 2:49:14 PM Referred By: Dar Quezada Confirmed By: Armand Guaman
[2024-09-23] MEDS ORDERED: TAMSULOSIN HCL 0.4 MG CAP PO SCH (21:00)
== END 2024-09-23 15:39 | disposition home or self-care (01) ==
LOC: ED 20:51 → 2S 20:51 → SUATTDRO 23:34 → 2S 09-23 00:51